=== PATIENT | female | born 1945 | race Caucasian/White ===

== ENCOUNTER → 2019-07-08 10:52 | Outpatient (BNVA) | payer MEDICARE, SELFPAY | PROVIDERS: Visit Provider Nurse Practitioner Family | DX: E78.2 Mixed hyperlipidemia (principal); I10 Essential (primary) hypertension; E03.8 Other specified hypothyroidism; Z76.89 Persons encountering health services in other specified circumstances; F17.200 Nicotine dependence, unspecified, uncomplicated | CPT/HCPCS: 80053; 80061; 84443; 85025 ==

== ENCOUNTER 2021-12-09 12:43 | Outpatient (CLI) | payer MEDICARE, SELFPAY ==
--- NOTE | 2021-12-09 12:57 | XR_ITS ---
WS: [id number] Thoracic spine, AP and lateral views, 12/09/2021 Clinical Data: THORACIC SPINE PAIN Comparison: None. Findings: There is a compression fracture of the T11 vertebral body with loss of greater than 50% of the anteri or and central vertebral body height. The disc heights are normal. The paravertebral regions are normal. There are vascular calcifications of the thoracic aorta and the splenic artery. XR/XR thoracic spine 2V [id number] Impression: T11 compression fracture of indeterminate age.
--- NOTE | 2021-12-09 12:57 | XR_ITS ---
WS: [id number] Lumbar spine, AP, lateral, both obliques, 12/09/2021 Clinical Data: LUMBAR PAIN Comparison: None. Findings: No lumbar compression fractures or subluxation is seen. There is a T11 vertebral body compression fra cture. Osteoporosis is present along with minimal anterior osteoarthritic spurring of all the vertebr al bodies.. No disc space narrowing is seen. The transverse processes and SI joints are normal. The oblique films show no spondylolysis. There is calcification in the wall of the abdominal aorta bu t no aneurysm and calcification in the splenic artery.. There are calcifications in the true pelvis w hich may represent uterine leiomyomas. XR/XR lumbar spine min 4V [id number] Impression: 1. T11 compression fracture but no lumbar compression fractures. 2. Osteoporosis with minimal anterior osteoarthritic spurring. 3. Negative for spondylolysis.
--- NOTE | 2021-12-09 12:57 | XR_ITS ---
WS: [id number] Cervical spine, 4 views, 12/09/2021 Clinical Data: CERVICAL PAIN-NECK Comparison: None. Findings: No compression fractures are seen. The disc heights are normal. There is no prevertebral so ft tissue swelling. The odontoid is unremarkable. There are bilateral soft tissue calcifications in t he neck probably represent carotid artery calcifications. The lung apices are normal. XR/XR cervical spine 3V* [id number] Impression: Negative cervical spine.
== END 2021-12-09 12:44 | disposition home or self-care (01) ==
PROVIDERS: PCP Nurse Practitioner Family; Visit Provider Nurse Practitioner Family
DX: M54.50 Low back pain, unspecified (principal); M54.2 Cervicalgia; M54.6 Pain in thoracic spine; S22.088A Other fracture of T11-T12 vertebra, initial encounter for closed fracture; X58.XXXA Exposure to other specified factors, initial encounter; M81.0 Age-related osteoporosis without current pathological fracture
CPT/HCPCS: 72040; 72070; 72110

== ENCOUNTER → 2022-02-08 08:24 | Outpatient (BNVA) | payer MEDICARE, SELFPAY | PROVIDERS: PCP Nurse Practitioner Family; Visit Provider Anesthesiology Pain Medicine | DX: M51.17 Intervertebral disc disorders with radiculopathy, lumbosacral region (principal); S22.000A Wedge compression fracture of unspecified thoracic vertebra, initial encounter for closed fracture; M79.604 Pain in right leg; M79.605 Pain in left leg; F17.210 Nicotine dependence, cigarettes, uncomplicated; X58.XXXA Exposure to other specified factors, initial encounter | CPT/HCPCS: 99205 ==

== ENCOUNTER 2023-06-26 12:05 | Outpatient (CLI) | payer MEDICARE, SELFPAY ==
--- NOTE | 2023-06-26 12:09 | XRR_ITS ---
PROCEDURE INFORMATION: Exam: XR Chest Exam date and time: 06/26/2023 12:20 PM Age: 77 years old Clinical indication: Shortness of breath TECHNIQUE: Imaging protocol: Radiologic exam of the chest. Views: 2 views. COMPARISON: CR XR cervical spine 3V* [id number] 12/09/2021 1:12 PM FINDINGS: Lungs: Minimal chronic interstitial prominence. Pleural spaces: Unremarkable. No pleural effusion. No pneumothorax. Heart/Mediastinum: See Vasculature finding. Vasculature: Mild cardiomegaly and uncoiling of the thoracic aorta. Bones/joints: Unremarkable. XR/XR chest 2V* [id number] IMPRESSION: No acute cardiopulmonary disease.
== END 2023-06-26 12:06 | disposition home or self-care (01) ==
LOC: RAD 12:06
PROVIDERS: PCP Nurse Practitioner Family; Visit Provider Nurse Practitioner Family
DX: R06.02 Shortness of breath (principal)
CPT/HCPCS: 71046

== ENCOUNTER → 2023-07-19 15:02 | Outpatient (BNVA) | payer MEDICARE, SELFPAY | PROVIDERS: PCP Nurse Practitioner Family; Visit Provider Nurse Practitioner | DX: I10 Essential (primary) hypertension (principal); E78.2 Mixed hyperlipidemia; E03.8 Other specified hypothyroidism; E55.9 Vitamin D deficiency, unspecified; I48.91 Unspecified atrial fibrillation; F17.200 Nicotine dependence, unspecified, uncomplicated | CPT/HCPCS: 80053; 80061; 82306; 82607; 84443; 85025 ==

== ENCOUNTER 2023-07-26 07:47 | Outpatient (CLI) | payer MEDICARE, SELFPAY ==
--- NOTE | 2023-07-26 08:00 | USCV_ITS ---
Mis Crow Age: 78 Gender: F : 1945 Exam Date: 07/26/2023 07:59 Ordering Phys: Antonio Delong Technologist: ARACELI Exam Location: [facility] [place] Indication: sob BP: 130 / 70 HR: 0 Rhythm: Sinus Technical Quality: Adequate MEASUREMENTS (Male / Female) Normal Values 2D ECHO LV Diastolic Diameter PLAX 4.6 cm 4.2 - 5.9 / 3.9 - 5.3 cm IVS Diastolic Thickness 1.2 cm 0.6 - 1.0 / 0.6 - 0.9 cm IVS Systolic Thickness 1.6 cm LVPW Diastolic Thickness 1.0 cm 0.6 - 1.0 / 0.6 - 0.9 cm LVPW Systolic Thickness 1.1 cm LVOT Diameter 2.0 cm LV Ejection Fraction 2D Teich 29.0 % LV Ejection Fraction MOD 2C 63.7 % LV Ejection Fraction 2C AL 0.0 % LA Diameter 4.5 cm Aorta at Sinotubular Diameter 2.5 cm IVC Diameter 2.1 cm M-MODE LA Ao Ratio MM 1.8 AV Cusp Separation MM 1.5 cm DOPPLER AV Peak Velocity 127.0 cm/s LVOT Peak Velocity 60.0 cm/s AV Area Cont Eq vti 0.6 cm squared AV Area Cont Eq pk 1.5 cm squared MV Area PHT 11.4 cm squared Mitral E to A Ratio 2.9 TR Peak Velocity 89.0 cm/s TR Peak Gradient 3.2 mmHg Right Atrial Pressure 3.0 mmHg Pulmonary Artery Systolic Pressu 6.2 mmHg PV Peak Velocity 67.0 cm/s FINDINGS Left Ventricle Normal left ventricular size and systolic function, EF 63%.no regional wall motion abnormalities. Right Ventricle The right ventricle is normal in size and function. Right Atrium Mildly increased right atrial size. Left Atrium Moderately increased left atrial size. Mitral Valve Mild mitral valve regurgitation. Aortic Valve Thickened aortic valve. Tricuspid Valve No gross abnormalities noted Pulmonic Valve Mild pulmonary valve regurgitation. Pericardium Normal pericardium without effusion. Aorta Normal ascending aorta dimension. IVC Normal inferior vena cava. CONCLUSIONS Normal left ventricular size and systolic function, EF 63%. No regional wall motion abnormalities. Mildly increased right atrial size. Moderately increased left atrial size. Thickened aortic valve. Mild pulmonary valve regurgitation. There is no pericardial effusion. There are no intracardiac masses. No similar previous studies are available for comparison Dr Mona John MD FACC (Electronically Signed) Final Date: 26 July 2023 13:03 S
== END 2023-07-26 07:48 | disposition home or self-care (01) ==
LOC: RAD 07:47
PROVIDERS: PCP Nurse Practitioner Family; Visit Provider Nurse Practitioner
DX: I48.91 Unspecified atrial fibrillation (principal); I35.8 Other nonrheumatic aortic valve disorders; I37.1 Nonrheumatic pulmonary valve insufficiency
CPT/HCPCS: 93306

== ENCOUNTER → 2023-09-12 11:42 | Outpatient (BNVA) | payer MEDICARE, SELFPAY | PROVIDERS: PCP Nurse Practitioner Family; Referring Provider Nurse Practitioner Family; Visit Provider Internal Medicine Cardiovascular Disease | DX: R07.9 Chest pain, unspecified (principal); I48.91 Unspecified atrial fibrillation; I48.92 Unspecified atrial flutter; Z79.01 Long term (current) use of anticoagulants; R53.1 Weakness; R06.02 Shortness of breath; E78.2 Mixed hyperlipidemia; I10 Essential (primary) hypertension; R05.8 Other specified cough; Z87.891 Personal history of nicotine dependence; R94.31 Abnormal electrocardiogram [ECG] [EKG] | CPT/HCPCS: 36415; 80053; 83880; 84443; 85025; 85610; 93005; 99204 ==

== ENCOUNTER → 2024-01-02 16:13 | Outpatient (BNVA) | payer MEDICARE, SELFPAY | PROVIDERS: PCP Nurse Practitioner; Visit Provider Nurse Practitioner | DX: I10 Essential (primary) hypertension (principal) | CPT/HCPCS: 80053; 81000 ==

== ENCOUNTER → 2024-02-06 10:50 | Outpatient (BNVA) | payer MEDICARE, SELFPAY | PROVIDERS: PCP Nurse Practitioner; Referring Provider Nurse Practitioner Family; Visit Provider Internal Medicine | DX: E03.8 Other specified hypothyroidism (principal) | CPT/HCPCS: 36415; 84439; 84443 ==

== ENCOUNTER 2024-04-13 22:13 | Inpatient (IN) | payer MEDICARE, SELFPAY ==
[2024-04-13 22:16] VITALS: BP 210/120; PULSE 129; RESP 16; TEMP 36.4; O2SAT 97
[2024-04-13 22:29] LABS: Glucose Point of Care 142 mg/dL (70-110)
--- NOTE | 2024-04-13 22:29 | CTR_ITS ---
PROCEDURE INFORMATION: Exam: CT Head Without Contrast Exam date and time: 04/13/2024 10:31 PM Age: 78 years old Clinical indication: Stroke-like symptoms; Altered mental status/memory loss and dizziness/giddiness and speech disturbance; RT upper extremity and RT lower extremity weakness; Additional info: Confusion and dizziness with dysphasia and RT sided weakness. Last known well time of 1600. TECHNIQUE: Imaging protocol: Computed tomography of the head without contrast. Radiation optimization: All CT scans at this facility use at least one of these dose optimization techniques: automated exposure control; mA and/or kV adjustment per patient size (includes targeted exams where dose is matched to clinical indication); or iterative reconstruction. Other technique: STROKE PROTOCOL was implemented. COMPARISON: CR XR cervical spine 3V* [id number] 12/09/2021 1:12 PM RADIATION DOSE METRICS: Total DLP (mGy-cm): 1097.98 FINDINGS: Brain: No CT evidence for acute ischemia, mass or hemorrhage. Generalized sulcal widening and ventricular enlargement is due to white matter volume loss. There is chronic moderate to advanced periventricular microangiopathy. Cerebral ventricles: See Brain finding. Paranasal sinuses: Visualized sinuses are unremarkable. No fluid levels. Mastoid air cells: Visualized mastoid air cells are well aerated. Bones: Unremarkable. No acute fracture. Soft tissues: Incidental left parietal external scalp osteoma. CT/CT head thrombolytic [id number] IMPRESSION: 1. No acute intracranial findings. 2. Atrophy and microangiopathy ASSESSMENT: ASPECTS ([place] Stroke Program Early CT Score) is 10.
--- NOTE | 2024-04-13 22:33 | P.HP_ITS ---
Providers/Chief Complaint 2 Primary Care Provider: Antonio Delong, [employer] ANALYST-C Chief Complaint: possible stroke History of Present Illness Mis Crow is a 78 year old female who has history of hypothyroidism, hypertension, A-fib, presented with chief complaint of nausea vomiting right- sided weakness and slurred speech. Patient lives with her sister, her symptoms started around 4 PM when she woke up feeling weak and lethargic when she stood up she started vomiting, she vomited 4 times, no seizure related activity, she noticed right-sided weakness and sister noted slurring of speech her symptoms were getting worse that is what prompted her visit in the ER. Code stroke was called. She was 6 hours out. Patient has stopped taking Eliquis a month ago because of the side effects. Patient thinks her Eliquis is making her sick. She has noticed weakness lethargy nausea and vomiting with Eliquis... At the time of my evaluation NIH score is 0 patient is awake and alert able to follow commands I do not appreciate any focal deficit, she is tachycardic A-fib RVR with hypotension Afebrile Able to follow commands CT head, CTA head and neck done in the ER Patient has not been taking her medication for quite some time, actively she is struggling with dyspnea on exertion, she is an ex-smoker stopped 2 years ago Review of Systems 2 Const: Reports: chills and change in weight; Denies: fever(s) Eyes: Denies: change in vision ENMT: Denies: throat pain Card: Denies: chest pain Resp: Denies: dyspnea GI: Reports: nausea and vomiting : Denies: flank pain Musc: Denies: neck pain Medications/Allergies Home Medications Medication Instructions Recorded Confirmed Last Taken Type ascorbic acid (vitamin C) 1,000 mg PO 07/08/19 04/08/24 Unknown History cholecalciferol (vitamin D3) 600 unit PO 07/08/19 04/08/24 Unknown History cyanocobalamin (vitamin B-12) 250 mcg PO 07/08/19 04/08/24 Unknown History vitamin E (dl, acetate) 400 unit PO 07/08/19 04/08/24 Unknown History magnesium hydroxide 400 mg (170 mg mg PO 02/08/22 04/08/24 Unknown History magnesium) chewable tablet umeclidinium 62.5 mcg-vilanterol 1 inh inhalation Q24H #60 ea 11/14/23 04/08/24 Unknown Rx 25 mcg/actuation powdr for inhalation (Anoro Ellipta) valsartan 160 mg tablet (Diovan) 320 mg (2 x 160 mg) PO DAILY #60 03/05/24 04/08/24 Unknown Rx tabs metoprolol tartrate 50 mg tablet 50 mg PO BID #60 tabs 04/08/24 04/08/24 Unknown Rx thyroid (pork) 60 mg tablet 60 mg PO DAILY #30 tabs 04/08/24 04/08/24 Unknown Rx ([place] Thyroid) Allergies Allergy/AdvReac Type Severity Reaction Status Date / Time Penicillins Allergy ADR-Agitate Verified 04/13/24 22:24 d aspirin AdvReac Severe ADR-Vomitin Verified 04/13/24 22:24 g lisinopril AdvReac Severe ADR-Cough Verified 04/13/24 22:24 PFSH Acute 2 PFSH: Medical History Influenza vaccination declined by patient Former cigarette smoker Atrial fibrillation Benign hypertension Mixed hyperlipidemia Adult onset hypothyroidism Surgical History History of cataract extraction Family History Sister Cancer Breast, bone, lymphoma Diabetes Hypertension Denies family history of Anesthesia complication Social History Smoking and tobacco/nicotine status: former use of tobacco/nicotine Alcohol intake: never Substance/Drug Use: never Adopted: No Caregiver/support person: Yes (family) Lives independently: Yes Household members: family Housing: House Marital status: / Number of children: 2 Number of grandchildren: 3 Highest education level completed: Some College, No Degree service: No Current occupational status: retired Current occupational exposures/hazards: No Do you think of yourself as: Straight/Heterosexual Current gender identity: Female Vitals/I&O/Wt Last Vital Signs Temp 97.5 F L 04/13/24 22:16 Pulse 129 H 04/13/24 22:16 Resp 16 04/13/24 22:16 BP 210/120 04/13/24 22:16 Pulse Ox 97 04/13/24 22:16 Weight last 48 hrs Weight 60.781 kg Physical Exam 2 Narrative: NIH 0 Awake and alert Able to follow commands No active focal deficit Hypertensive blood pressure 210/120 A-fib RVR Afebrile Able to follow commands Pleasant and cooperative Looks dehydrated S1, S2 variable No audible stridor or wheezing No respiratory distress No active chest pain Data 04/13/24 23:00 04/13/24 23:00 A&P Assessment and plan (1) Benign hypertension: (2) Atrial fibrillation: Qualifiers: Atrial fibrillation type: unspecified Qualified Code(s): I48.91 - Unspecified atrial fibrillation (3) Tachycardia: (4) Adult onset hypothyroidism: Plan TIA CT head CTA head and neck done Rule out posterior circulation stroke NIH 0 at the time of my evaluation Permissive hypertension Antihypertensive regimen to be used if blood pressure above 180/100mmhg Check B12, A1c level and TSH A-fib RVR She carries high risk for thromboembolic phenomenon at home patient takes metoprolol 50 mg twice daily, She has not taken her evening dose of metoprolol because of nausea vomiting Patient stopped taking Eliquis I have talked with the family that if she is experiencing side effects from Eliquis we can probably change to rivaroxaban Hypothyroid: Patient has not taken thyroid medication for quite some time Patient is attributing most of her symptoms to medications Patient is stating that she does not want to take any medications Extensive counseling needed before discharge Dyspnea on exertion: Cardiology wanted to do baseline workup echo was done in June as well no recent chest pain, EKG showing A-fib with RVR She may benefit from a cardiac stress test if stays still Monday: Kindly reevaluate over the weekend Back pain: T11 compression fracture is chronic since 2021 Will not request echo: It was done this year in June EF 63% no regional wall motion abnormality Will request PT/OT no need of ST patient does not have any slurring of speech, I do not appreciate any slurring of speech, I would allow patient to have cardiac diet for now Full code DVT prophylaxis therapeutic Lovenox Attestations 2 Medical Necessity Statement*: Anticipating discharge within 24 to 48 hours Diagnoses Benign hypertension I10 Atrial fibrillation, unspecified type I48.91 Atrial fibrillation type: unspecified Tachycardia R00.0 Adult onset hypothyroidism E03.8
--- NOTE | 2024-04-13 22:34 | CTR_ITS ---
PROCEDURE INFORMATION: Exam: CTA Head With Contrast, Arteriography Exam date and time: 04/13/2024 10:40 PM Age: 78 years old Clinical indication: Stroke-like symptoms; Altered mental status/memory loss and syncope/collapse; RT upper extremity and RT lower extremity weakness; Additional info: Confusion and dizziness with dysphasia and RT sided weakness. Last known well time of 1600. TECHNIQUE: Imaging protocol: Computed tomographic angiography of the head with contrast. Exam focused on the arteries. 3D rendering (Not supervised by radiologist): MIP and/or 3D reconstructed images were created by the technologist. Radiation optimization: All CT scans at this facility use at least one of these dose optimization techniques: automated exposure control; mA and/or kV adjustment per patient size (includes targeted exams where dose is matched to clinical indication); or iterative reconstruction. Contrast material: OMNI 350; Contrast volume: 100 ml; Contrast route: INTRAVENOUS (IV); COMPARISON: CT head thrombolytic [id number] 04/13/2024 10:31 PM RADIATION DOSE METRICS: Total DLP (mGy-cm): 383.22 FINDINGS: ANTERIOR CIRCULATION: Right internal carotid artery: Intracranial segment is patent with no significant stenosis. No aneurysm. Right middle cerebral artery: No occlusion or significant stenosis. No aneurysm. Right anterior cerebral artery: No occlusion or significant stenosis. No aneurysm. Left internal carotid artery: Calcified plaque in the distal left internal carotid artery does not produce significant stenosis. Left middle cerebral artery: No occlusion or significant stenosis. No aneurysm. Left anterior cerebral artery: No occlusion or significant stenosis. No aneurysm. POSTERIOR CIRCULATION: Right vertebral artery: No occlusion or significant stenosis. No aneurysm. Left vertebral artery: The distal vertebral arteries are patent with the left side strongly dominant. Basilar artery: No occlusion or significant stenosis. No aneurysm. Right posterior cerebral artery: No occlusion or significant stenosis. No aneurysm. Left posterior cerebral artery: No occlusion or significant stenosis. No aneurysm. Brain: No abnormal brain parenchymal enhancement. Major intracranial venous sinuses enhance normally. Cerebral ventricles: No ventriculomegaly. Bones/joints: Unremarkable. No acute fracture. Soft tissues: Unremarkable. PROCEDURE INFORMATION: Exam: CTA Neck With Contrast Exam date and time: 04/13/2024 10:40 PM Age: 78 years old Clinical indication: Stroke-like symptoms; Altered mental status/memory loss and syncope/collapse; RT upper extremity and RT lower extremity weakness; Additional info: Confusion and dizziness with dysphasia and RT sided weakness. Last known well time of 1600. TECHNIQUE: Imaging protocol: Computed tomographic angiography of the neck with contrast. Exam focused on the cervical segments of the vasculature. 3D rendering (Not supervised by radiologist): MIP and/or 3D reconstructed images were created by the technologist. Radiation optimization: All CT scans at this facility use at least one of these dose optimization techniques: automated exposure control; mA and/or kV adjustment per patient size (includes targeted exams where dose is matched to clinical indication); or iterative reconstruction. Contrast material: OMNI 350; Contrast volume: 100 ml; Contrast route: INTRAVENOUS (IV); COMPARISON: CT head thrombolytic [id number] 04/13/2024 10:31 PM RADIATION DOSE METRICS: Total DLP (mGy-cm): 383.22 FINDINGS: Right common carotid artery: No stenosis. No dissection or occlusion. Right internal carotid artery: Numerous calcified plaques in the right internal carotid without measurable stenosis. Calcified plaque in the right internal carotid producing mild less than 30% stenosis. Right external carotid artery: No occlusion or stenosis of the origin. Left common carotid artery: Numerous calcified plaques in the left common carotid without measurable stenosis. Left internal carotid artery: Additional calcified plaque in the proximal left internal carotid artery without measurable stenosis. Left external carotid artery: No occlusion or stenosis of the origin. Right vertebral artery: No stenosis. No dissection or occlusion. Left vertebral artery: Both vertebral arteries are patent with the left side dominant. Thyroid: Scattered coarse calcifications in the right lobe of the thyroid. Teeth: The patient is edentulous. Soft tissues: Normal. No significant soft tissue swelling. Bones/joints: No acute fracture. Lungs: Scars in the lung apices as well as centrilobular emphysema. CT/CT angio headneck* [id number] IMPRESSION: No significant intracranial vascular findings. IMPRESSION: No significant carotid or vertebral stenosis. REFERENCES: NASCET CRITERIA. The degree of stenosis in the cervical segment of the internal carotid artery is based on NASCET criteria. Normal is no stenosis. Mild is less than 50% stenosis. Moderate is 50-69% stenosis. Severe is 70% to 99% stenosis. Total occlusion is no detectable patent lumen.
--- NOTE | 2024-04-13 22:38 | ED_ITS ---
HPI - Altered Mental Status 2 General: Chief Complaint: Altered Mental Status Stated Complaint: possible stroke Time Seen by Provider: 04/13/24 22:37 History of Present Illness: 78-year-old female who is normally up wa lking unassisted, functional and talking. Around 4 PM today, family noticed that she did not know how to use the bathroom . She was having trouble talking. She was having trouble getting around. Yesterday was evidently a good day. She had not been ill. Related Data Previous Rx's Medication Instructions Recorded metoprolol tartrate 50 mg tablet 50 mg PO BID #60 tabs 04/08/24 Allergies Allergy/AdvReac Type Severity Reaction Status Date / Time Penicillins Allergy ADR-Agitate Verified 04/13/24 22:24 d aspirin AdvReac Severe ADR-Vomitin Verified 04/13/24 22:24 g lisinopril AdvReac Severe ADR-Cough Verified 04/13/24 22:24 PFSH ED 2 PFSH: Medical History Influenza vaccination declined by patient Former cigarette smoker Atrial fibrillation Benign hypertension Mixed hyperlipidemia Adult onset hypothyroidism Surgical History History of cataract extraction Family History Sister Cancer Breast, bone, lymphoma Diabetes Hypertension Denies family history of Anesthesia complication Social History Smoking and tobacco/nicotine status: former use of tobacco/nicotine Alcohol intake: never Substance/Drug Use: never Adopted: No Caregiver/support person: Yes (family) Lives independently: Yes Household members: family Housing: House Marital status: / Number of children: 2 Number of grandchildren: 3 Highest education level completed: Some College, No Degree service: No Current occupational status: retired Current occupational exposures/hazards: No Do you think of yourself as: Straight/Heterosexual Current gender identity: Female Physical Exam 2 Const: COMMON NORMALS: alert EXAM LIMITATIONS: altered mental status G ENERAL APPEARANCE: cooperative and ill appearing ORIENTATION/CONSCIOUSNESS: Y es awake, Yes oriented to person and Yes oriented to place; not oriented to time HENMT: COMMON NORMALS: normocephalic, atraumatic and Normal external nose present HEAD & SCALP: normocephalic and atraumatic FACE & SINUS: normal facial exam and face symmetric NOSE: Normal external nose present MOUTH: l ip normal Eye: COMMON NORMALS: Equal, round and reactive pupils present and EOMs intact bilaterally ALIGNMENT: Yes alignment normal PUPIL: Yes Equal, round and reactive pupils present Resp: COMMON NORMALS: normal respiratory effort, No retractions and clear to auscultation bilaterally AUSCULTATION: clear to auscultation bilaterally Cardio: RATE: tachycardic RHYTHM: abnormal rhythm irregularly irregular GI: COMMON NORMALS: Normal to inspection, nondistended, normoactive bowel sounds present, Soft to palpation and non-tender PALPATION: Yes Soft to palpation Neuro: SENSORIUM/ORIENTATION: Yes alert, Yes oriented to person, Yes oriented to place and No oriented to time CRANIAL NERVES: Yes CN normal except as noted COORDINATION/BALANCE: No mdthqc-kc-[id number] test normal and No bwsc-no-qbvz test normal SPEECH: speech normal SENSORY EXAM: Yes extremities (intact) MOTOR EXAM: 5/5 motor strength present throughout, Pronator motor function not present and Normal motor muscle tone present throughout COORDINATION: f bombb-ro-kwnb test abnormal and wdtr-ac-arjl test abnormal Course 2 Vital Signs: Vital signs: Vital Signs Temperature 97.8 F 04/14/24 01:00 Pulse Rate 100 04/14/24 01:00 Respiratory Rate 14 04/14/24 01:00 Blood Pressure 178/121 04/14/24 01:00 Pulse Oximetry 95 04/14/24 01:00 Oxygen Delivery Me thod Room Air 04/14/24 01:00 MDM - Altered Mental Status Medical Decision Making There is a bit of discoordination. There may be visual field defects, although visual field testing by confrontation is intact. Speech is normal. She does have some degree of expressive aphasia though, as she is unable to say her last name. She answers most questions, although she is confused and a poor historian about events today. This could be a posterior circulation stroke, although she does not show all the signs. She is not dizzy or vertiginous currently. She has evidently had vomiting and diarrhea today. Heart rate is elevated. She has a history of atrial fibrillation. She is in A-fib with RVR, and very hypertensive. She is started on diltiazem drip for both hypertension and tachycardia. Head CT is negative. CTA of the head and neck are negative for acute stenosis. She is out of the window to treat with thrombolytics. She was prescribed Eliquis, but family states she has not been taking it. Her creatinine is 1.4. Her sodium is 132. Hospitalist is seeing the patient. She will go to the [facility]. Chest x-ray is nonacute. Lactic acid is 2. Urinalysis is pending. Lab Data 04/13/24 23:00 04/13/24 23:[address] 04/13/24 22:29 IMPRESSION: 1. No acute intracranial findings. 2. Atrophy and microangiopathy ASSESSMENT: ASPECTS (Jenifer Stroke Program Early CT Score) is 10. Head/Neck CTA 04/13/24 22:34 IMPRESSION: No significant intracranial vascular findings. IMPRESSION: No significant carotid or vertebral stenosis. REFERENCES: NASCET CRITERIA. The degree of stenosis in the cervical segment of the internal carotid artery is based on NASCET criteria. Normal is no stenosis. Mild is less than 50% stenosis. Moderate is 50-69% stenosis. Severe is 70% to 99% stenosis. Total occlusion is no detectable patent lumen. Chest X-Ray 04/13/24 22:45 IMPRESSION: No acute findings. Laboratory Results WBC 11.34 10^3/uL (3.29-11.43) 04/13/24 23:00 RBC 4.44 10^6/uL (3.85-5.65) 04/13/24 23:00 Hgb 13.60 g/dL (11.27-16.99) 04/13/24 23:00 Hct 42.2 % (36-47) 04/13/24 23:00 MCV 95.0 fl (85-98) 04/13/24 23:00 MCH 30.6 pg (27-33) 04/13/24 23:00 MCHC 32.2 g/dL (30-55) 04/13/24 23:00 RDW 15.0 % (12.1-15.1) 04/13/24 23:00 Plt Count 299 10^3/cmm (157-399) 04/13/24 23:00 MPV 9.0 fL (7.4-10.4) 04/13/24 23:00 Neut % (Auto) 86.6 % 04/13/24 23:00 Lymph % (Auto) 9.7 % 04/13/24 23:00 Yell % (Auto) 2.8 % 04/13/24 23:00 Eos % (Auto) 0.1 % 04/13/24 23:00 Baso % (Auto) 0.5 % 04/13/24 23:00 Neut # (Auto) 9.82 10^3/uL (1.8-7.7) H 04/13/24 23:00 Lymph # (Auto) 1.1 10^3/uL (0.8-4.8) 04/13/24 23:00 Yell # (Auto) 0.3 10^3/uL (0.2-0.9) 04/13/24 23:00 Eos # (Auto) 0.0 10^3/uL (0.0-0.8) 04/13/24 23:00 Baso # (Auto) 0.1 10^3/uL (0.0-0.1) 04/13/24 23:00 Nucleated RBC % (auto) 0 % 04/13/24 23:00 Nucleated RBCs # 0.0 /100WBC 04/13/24 23:00 PT 13.90 SECONDS (12.1-14.9) 04/13/24 23:00 INR 1.04 (0.8-1.2) 04/13/24 23:00 APTT 30.5 SECONDS (23.9-36.7) 04/13/24 23:00 Sodium 132 mmol/L (136-145) L 04/13/24 23:00 Potassium 4.1 mmol/L (3.5-5.1) 04/13/24 23:00 Chloride 95 mmol/L (98-107) L 04/13/24 23:00 Carbon Dioxide 24 mmol/L (22-29) 04/13/24 23:00 Anion Gap 17.1 (5-19) 04/13/24 23:00 BUN 21 mg/dL (8-23) 04/13/24 23:00 Creatinine 1.4 mg/dL (0.5-0.9) H 04/13/24 23:00 GFR Calculation Not Reportable 04/13/24 23:00 Glucose 170 mg/dL (65-115) H 04/13/24 23:00 POC Glucose 142 mg/dL (70-110) H 04/13/24 22:25 Estimat Average Glucose 114 04/13/24 23:00 Hemoglobin A1c 5.6 % (4.0-6.0) 04/13/24 23:00 Calculated Osmolality 281 mOsm/kg (285-295) L 04/13/24 23:00 Lactic Acid 2.1 mmol/L (0.5-2.2) 04/13/24 23:00 Calcium 9.6 mg/dL (8.5-10.5) 04/13/24 23:00 Total Bilirubin 0.5 mg/dL (0.15-1.2) 04/13/24 23:00 AST 18 U/L (0-32) 04/13/24 23:00 ALT 11 U/L (0-33) 04/13/24 23:00 Alkaline Phosphatase 64 U/L (35-105) 04/13/24 23:00 Troponin T Baseline 26 ng/L (0-10) H 04/13/24 23:00 C-Reactive Protein 3.0 mg/L (0.0-4.9) 04/13/24 23:00 NT-Pro-B Natriuret Pep 4004 pg/mL (0-450) H 04/13/24 23:00 Total Protein 8.0 g/dL (6.6-8.7) 04/13/24 23:00 Albumin 4.6 g/dL (3.5-5.2) 04/13/24 23:00 Globulin 3.4 g/dL (1.3-4.6) 04/13/24 23:00 Ethyl Alcohol < 10 mg/dL (0-10) 04/13/24 23:00 All radiology interpretation(s) finalized by discharge Discharge Plan Discharge Patient Disposition: Admitted As Inpatient Admit Provider: Jimmy Chambers Clinical Impression: Acute alteration in mental status, Atrial fibrillation with rapid ventricular response Condition: Serious Coding Level of Care Code ED Extension Service Agent for Juwan Blank
[2024-04-13] MEDS: iohexol 350 mg/mL 500 mL Btl (per mL) IV (22:41)
--- NOTE | 2024-04-13 22:45 | XRR_ITS ---
PROCEDURE INFORMATION: Exam: XR Chest Exam date and time: 04/13/2024 10:55 PM Age: 78 years old Clinical indication: Patient HX: AMS; Acute CVA; Cough TECHNIQUE: Imaging protocol: Radiologic exam of the chest. Views: 1 view. COMPARISON: CR XR chest 2V* [id number] 06/26/2023 12:20 PM FINDINGS: Lungs: Unremarkable. No consolidation. Pleural spaces: Unremarkable. No pleural effusion. No pneumothorax. Heart/Mediastinum: Unremarkable. No cardiomegaly. Bones/joints: Unremarkable. XR/XR chest 1V portable [id number] IMPRESSION: No acute findings.
--- NOTE | 2024-04-13 22:53 | ECG_ITS ---
[facility] [place] Test Date: 2024-04-13 Pat Name: Mis Crow Department: Room: Gender: Female Hand Hide Stretcher: : 1945 Requested By: Mazin Culp Order Number: [id number] Denilson MD: Mona John M.D. Measurements Intervals [place] Rate: 139 P: 0 IL: 0 QRS: 100 QRSD: 95 T: -39 QT: 297 QTc: 453 Interpretive Statements ATRIAL FIBRILLATION WITH RAPID VENTRICULAR RESPONSE BORDERLINE RIGHT AXIS DEVIATION [QRS AXIS > 90] NONSPECIFIC ST & T-WAVE ABNORMALITY Compared to ECG 09/12/2023 11:49:38 T-wave abnormality now present Electronically Signed On 04-14-2024 20:22:49 SKEIN BANDER by Mona John M.D. [email or web address]
[2024-04-13] MEDS: sodium chloride 0.9% 1,000 ML 999 ML IV (23:08)
[2024-04-13 23:10] LABS: Basophils # 0.1 10^3/uL (0.0-0.1); Basophils % 0.5 %; Eosinophils % 0.1 %; Hematocrit 42.2 % (36-47); Lymphocytes # 1.1 10^3/uL (0.8-4.8); Lymphocytes % 9.7 %; Mean Corpuscular HGB Conc 32.2 g/dL (30-55); Mean Corpuscular Hemoglobin 30.6 pg (27-33); Monocytes # 0.3 10^3/uL (0.2-0.9); Monocytes % 2.8 %; Neutrophils # 9.82 10^3/uL (1.8-7.7); Neutrophils % 86.6 %; Nucleated Red Blood Cells % 0 %; Platelet Count 299 10^3/cmm (157-399); Red Blood Count 4.44 10^6/uL (3.85-5.65); White Blood Count 11.34 10^3/uL (3.29-11.43)
[2024-04-13 23:26] LABS: INR 1.04 (0.8-1.2)
[2024-04-13 23:27] LABS: Partial Thromboplastin Time 30.5 SECONDS (23.9-36.7)
[2024-04-13 23:30] LABS: Lactic Sepsis W/Reflex 2.1 mmol/L (0.5-2.2)
[2024-04-13 23:32] LABS: Troponin(5th) Baseline 26 ng/L (0-10)
[2024-04-13 23:34] LABS: Bilirubin Urine Negative (Negative); Blood Urine Negative (Negative); Glucose Urine UA Negative (Normal); Ketones Urine Trace (Negative); Leukocyte Esterase Urine Negative (Negative); Nitrate Urine Negative (Negative); Protein Urine 2+ (Negative); Specific Gravity, Urine 1.027 (1.005-1.030); Urine Appearance Clear (CLEAR); Urine Color Yellow (Yellow); Urobilinogen Urine 0.2 mg/dL (Negative); pH Urine 7.5 (5-7)
[2024-04-13 23:37] LABS: Add Urine Microscopic? YES; Bacteria Urine None Seen /hpf; Hyaline Casts Urine 0-4 /lpf; RBC Urine 0-2 /hpf (0-2); Squamous Epithelial Cell Urine 0-5 /hpf (0-5); WBC Urine 0-5 /hpf (0-5)
[2024-04-13] MEDS: dilTIAZem 100 MG in sodium chloride 0.9% (add-van) 100 ML IV (23:38)
[2024-04-13 23:39] VITALS: BP 205/148; PULSE 130; RESP 26; O2SAT 95
[2024-04-13 23:40] LABS: Alanine Aminotransferase 11 U/L (0-33); Albumin Level 4.6 g/dL (3.5-5.2); Alkaline Phosphatase 64 U/L (35-105); Anion Gap 17.1 (5-19); Aspartate Amino Transferase 18 U/L (0-32); Blood Urea Nitrogen 21 mg/dL (8-23); Calcium 9.6 mg/dL (8.5-10.5); Carbon Dioxide 24 mmol/L (22-29); Chloride 95 mmol/L (98-107); Creatinine Clr Calc Pharmacy 30.3027; Globulin 3.4 g/dL (1.3-4.6); Glucose 170 mg/dL (65-115); NT Pro B Type Natriuretic Pept 4004 pg/mL (0-450); Osmolality Calculated 281 mOsm/kg (285-295); Potassium 4.1 mmol/L (3.5-5.1); Sodium 132 mmol/L (136-145); Total Bilirubin 0.5 mg/dL (0.15-1.2)
[2024-04-13 23:42] LABS: Amphetamines Screen Urine Negative (Negative); Barbiturates Screen Urine Negative (Negative); Benzodiazepines Screen Urine Negative (Negative); Cocaine Screen Urine Negative (Negative); Opiate Screen Urine Negative (Negative); PCP Screen Urine Negative (Negative); THC Screen Urine Negative (Negative)
[2024-04-13 23:43] LABS: ABG PCO2 35.1 mmHg (35-45); ABG PH Result 7.38 (7.35-7.45); Base Excess ABG -3.7 mmol/L (-2.0-2.0); Blood Gas Sample Site Brachial, right; Blood Gas Sample Type Arterial; HCO3 ABG 20.8 mmol/L (22-26); Oxygen Device ROOM AIR; PO2 ABG 79.7 mmHg (80.0-100.0)
[2024-04-13 23:44] LABS: Alcohol Level < 10 mg/dL (0-10)
[2024-04-14] VITALS (15 sets, daily range): BP systolic 157–182; BP diastolic 84–134; PULSE 77–101; RESP 10–20; TEMP 36.6–37; O2SAT 90–98
[2024-04-14 00:53] LABS: Reflex Lactate Order REFLEX LACTIC ORDERD
[2024-04-14] MEDS: enoxaparin 60 mg/0.6 mL Syringe SUBCUT (01:26)
--- NOTE | 2024-04-14 01:37 | ECG_ITS ---
[facility] Test Date: 2024-04-14 Pat Name: Mis Crow Department: Room: 106 Gender: Female Manager Meeting: : 1945 Requested By: Mazin Culp Order Number: [id number] Denilson MD: Mona John M.D. Measurements Intervals [place] Rate: 109 P: 0 NC: 0 QRS: 89 QRSD: 96 T: -61 QT: 369 QTc: 498 Interpretive Statements ATRIAL FIBRILLATION WITH RAPID VENTRICULAR RESPONSE NONSPECIFIC ST & T-WAVE ABNORMALITY Compared to ECG 04/13/2024 22:53:31 No significant changes Electronically Signed On 04-14-2024 20:35:18 CARDIOVASCULAR INVASIVE SPECIALIST by Mona John M.D. [id number]
[2024-04-14 01:39] LABS: Estmated Average Glucose 114; Hemoglobin A1C 5.6 % (4.0-6.0)
[2024-04-14 01:41] LABS: Troponin 5 2HR 23.75 ng/L (0-10); Troponin 5 2HR Delta -2.25 ABS# (0-10)
[2024-04-14] MEDS: ondansetron 2 mg/ML SDV 2 mL 4 MG IVP ×2 (02:41→08:09)
[2024-04-14 02:47] LABS: Thyroid Stimulating Hormone 21.63 uIU/mL (0.27-4.20); Vitamin B12 1274 pg/mL (232-1245)
[2024-04-14 05:45] LABS: Anion Gap 14.1 (5-19); Blood Urea Nitrogen 18 mg/dL (8-23); Calcium 9.6 mg/dL (8.5-10.5); Carbon Dioxide 26 mmol/L (22-29); Chloride 102 mmol/L (98-107); Creatinine Clr Calc Pharmacy 32.8316; Glucose 134 mg/dL (65-115); Magnesium 2.1 mg/dL (1.7-2.3); Osmolality Calculated 290 mOsm/kg (285-295); Phosphorus 3.1 mg/dL (2.5-4.5); Potassium 4.1 mmol/L (3.5-5.1); Sodium 138 mmol/L (136-145)
[2024-04-14 05:46] LABS: Lactic Acid level (Lactate) 1.4 mmol/L (0.5-2.2)
--- NOTE | 2024-04-14 06:25 | ECG_ITS ---
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 Measurements Intervals [place] Rate: 81 P: 0 ID: 0 QRS: 82 QRSD: 102 T: 0 QT: 398 QTc: 462 Interpretive Statements ATRIAL FIBRILLATION NONSPECIFIC ST & T-WAVE ABNORMALITY ABNORMAL RHYTHM ECG Compared to ECG 04/14/2024 01:37:30 No significant changes Electronically Signed On 04-14-2024 20:35:22 SENIOR BUSINESS MANAGER by Mona John M.D. [id number]
[2024-04-14 06:27] LABS: Troponin 5 6HR 26.21 ng/L (0-10); Troponin 5 6HR Delta 0.21 ng/L (0-12)
[2024-04-14] MEDS: atorvastatin 40 mg Tablet 80 MG PO (08:08)
[2024-04-14] MEDS: metoprolol tartrate 50 mg Tablet PO (08:09)
[2024-04-14] MEDS: losartan 50 mg Tablet PO (08:09)
[2024-04-14] MEDS: thyroid 60 mg Tablet PO (08:09)
--- NOTE | 2024-04-14 08:18 | PC.NURSE ---
Patient is very confused this morning. She is alert oriented to person and needs direction for nearly every task. Patient will ask nurse if she (the patient( needs to throw up and will say do I throw up now? Zofran given for nausea. Daughter at bedside to hand patient wash basin when she needs it. Blood pressure still elevated. Morning medications given to bring it down.
[2024-04-14 08:51] LABS: Free T4 Free Thyroxine 0.65 ng/dL (0.82-1.77); T3 Free 1.7 PG/ML (2.0-4.4)
--- NOTE | 2024-04-14 09:12 | CTR_ITS ---
PROCEDURE INFORMATION: Exam: CT Head Without Contrast Exam date and time: 04/14/2024 9:21 AM Age: 78 years old Clinical indication: Altered mental status/memory loss; Additional info: Altered mental status with CVA TECHNIQUE: Imaging protocol: Computed tomography of the head without contrast. Radiation optimization: All CT scans at this facility use at least one of these dose optimization techniques: automated exposure control; mA and/or kV adjustment per patient size (includes targeted exams where dose is matched to clinical indication); or iterative reconstruction. COMPARISON: CT angio headneck* [id number] 04/13/2024 10:40 PM RADIATION DOSE METRICS: Total DLP (mGy-cm): 904.28 FINDINGS: Brain: Area hypoattenuation with loss of hooper-white differentiation in the left posterior BINGO CHECKER region including portions of the medial/posterior temporal and medial occipital lobes, concerning for acute infarct. Subcortical and periventricular white matter hypoattenuation likely consistent with severe chronic microvascular ischemic disease. No acute intracranial hemorrhage identified. No significant mass effect. Cerebral ventricles: The ventricles are within normal limits. Paranasal sinuses: The visualized sinuses are unremarkable. Mastoid air cells: The visualized mastoid air cells are well aerated. Bones: Unremarkable. No acute fracture. Soft tissues: Unremarkable. Vasculature: Prominent calcification in the region of the left posterior cerebral artery likely causing stenosis/occlusion. CT/CT head wo con* [id number] IMPRESSION: 1. Area hypoattenuation with loss of hooper-white differentiation in the left posterior BINGO CHECKER region including portions of the medial/posterior temporal and medial occipital lobes, concerning for acute infarct. 2. Prominent calcification in the region of the left posterior cerebral artery likely causing stenosis/occlusion. 3. Severe chronic microvascular ischemic disease.
--- NOTE | 2024-04-14 09:13 | MRR_ITS ---
PROCEDURE INFORMATION: Exam: MR Head Without Contrast Exam date and time: 04/14/2024 9:43 AM Age: 78 years old Clinical indication: Altered mental status/memory loss and dizziness and walking, difficulty; Confusion or disorientation; Additional info: CVA TECHNIQUE: Imaging protocol: Magnetic resonance imaging of the head without contrast. COMPARISON: CT head wo con* [id number] 04/14/2024 9:21 AM FINDINGS: Brain: Left GREASE PACKER territory restricted diffusion consistent with acute infarct. Periventricular and subcortical white matter hyperintensities on axial T2 FLAIR imaging consistent with chronic microvascular ischemic disease. No signal loss on gradient imaging concerning for acute hemorrhage. Cerebral ventricles: Normal. No ventriculomegaly. Bones: Unremarkable. Paranasal sinuses: Normal as visualized. No acute sinusitis. Mastoid air cells: Normal as visualized. No mastoid effusion. Orbital cavities: Unremarkable. Soft tissues: Unremarkable. MR/MR head wo con* [id number] IMPRESSION: Left GREASE PACKER territory restricted diffusion consistent with acute infarct.
[2024-04-14] MEDS: sodium chloride 0.9% 1,000 ML 100 ML IV ×2 (11:53→21:03)
[2024-04-14 12:10] LABS: Partial Thromboplastin Time 34.3 SECONDS (23.9-36.7)
[2024-04-14 12:13] LABS: Chol HDL Ratio 7.18 mg/dL (0.0-4.40); Cholesterol 280 mg/dL (0-200); HDL Cholesterol 39 mg/dL (60-100); LDL Cholesterol Calculated 212 mg/dL (50-129); LDL HDL Ratio 5.44 RATIO (0.00-3.22); Triglycerides 143 mg/dL (0-150)
--- NOTE | 2024-04-14 12:32 | PC.SLP ---
SCALE OPERATOR attempted to see patient. Patient was resting and family said she has not had much rest yet. Must remain flat per note on door entrance. Patient not safe to attempt bedside swallow on at this point. Will check back first thing in the AM.
[2024-04-14] MEDS: pantoprazole 40 mg SDV IVP (13:16)
[2024-04-14] MEDS: aspirin 300 mg Supp PR (13:16)
--- NOTE | 2024-04-14 14:03 | PM.PN ---
Subjective Subjective: - Patient was examined this morning, daughter is at bedside she is alert to person, not to place, not to time she can follow commands no facial droop no slurring of words no focal weakness that I can discharge she is able to data governance analyst my fingers bilaterally to raise bilateral arms to raise bilateral legs, she tested neglect the right side on examination, she is quite diffuse encephalopathic but I do feel that she has a right visual field cut, she does not recognize her daughter at bedside, does not remember her address, she knows her age, but does not know her address, [id number] is abnormal on the right, she tends to neglect the right ? NIH stroke scale is anywhere between 2-3 -Currently she is on a Cardizem drip for atrial fibrillation, rates are well-controlled blood pressure 170/110, she did receive therapeutic Lovenox overnight -Given acute concern, for CVA, intracranial bleed stat head CT was ordered -Discussed with family will at bedside will monitor her closely her last known well normal was 4 PM yesterday, as per documentation she was confused to the emergency room, family says that she is much more confused this morning, nursing staff tells me that she was confused throughout the night -Spoke to radiologist -Head CT CT/CT head wo con* [id number] IMPRESSION: 1. Area hypoattenuation with loss of hooper-white differentiation in the left posterior PROFESSIONAL SYSTEM ADMINISTRATOR region including portions of the medial/posterior temporal and medial occipital lobes, concerning for acute infarct. 2. Prominent calcification in the region of the left posterior cerebral artery likely causing stenosis/occlusion. 3. Severe chronic microvascular ischemic disease. -Stat head MRI - MR/MR head wo con* [id number] IMPRESSION: Left PROFESSIONAL SYSTEM ADMINISTRATOR territory restricted diffusion consistent with acute infarct. -Patient's Cardizem drip was stopped due to concerns for lowering blood pressure, heart rates are well-controlled nursing staff was advised to keep her flat, for least 24 hours, neurochecks, and a stroke scale keep her n.p.o. till speech therapy sees her allow for permissive hypertension, rectal aspirin hold therapeutic Lovenox -Spoke to [facility], teleneurology reviewed images reviewed case, out of the window for tPA, area of stroke is not amenable to endovascular procedure, they recommended medical management anticoagulation within 5 to 7 days -Patient was reexamined, she is resting comfortably, family members are at bedside, discussed patient's acute CVA, posterior circulation stroke discussed plans on medical management, will monitor closely monitor for hemorrhagic conversion, speech therapy eval PT OT, for now permissive hypertension, keep her flat IV fluids I would not discontinue the Cardizem due to her heart rates being under control and her blood pressure slowly coming down and I would rather her have permissive hypertension, can use pushes of Cardizem to control heart rate if needed or even amiodarone Vitals/I&O/Wt Last Vital Signs Temp 98.4 F 04/14/24 08:00 Pulse 94 04/14/24 11:51 Resp 20 H 04/14/24 11:51 BP 157/90 04/14/24 11:51 Pulse Ox 90 04/14/24 11:51 O2 Del Method Room Air 04/14/24 11:51 04/13/24 04/14/24 04/14/24 22:59 06:59 14:59 Intake Total 1051.875 / 1051.875 8.833 / 8.833 Output Total 300 / 300 300 / 300 Balance 751.875 / 751.875 -291.167 / -291.167 Weight last 48 hrs Weight 61.689 kg Weight 61.689 kg Weight 60.781 kg Physical Exam Const: COMMON NORMALS: no acute distress EXAM LIMITATIONS: altered mental status ORIENTATION/CONSCIOUSNESS: Yes awake, Yes oriented to person and Yes confused; not oriented to place and not oriented to time Eye: OTHER: Pupils equal round react to light, tends to have right-sided neglect, difficult to do visual field testing but I think she has a right-sided hemianopsia right-sided visual field cut Resp: COMMON NORMALS: normal respiratory effort, No retractions, No use of accessory muscles and clear to auscultation bilaterally AUSCULTATION: clear to auscultation bilaterally Cardio: COMMON NORMALS: regular rate, regular rhythm, S1 normal heart sound present and S2 normal heart sound present RATE: regular rate RHYTHM: regular rhythm HEART SOUNDS: S1 normal heart sound present and S2 normal heart sound present GI: COMMON NORMALS: Normal to inspection, nondistended, normoactive bowel sounds present and non-tender Extremity: COMMON NORMALS: no pedal edema Neuro: COMMON NORMALS: CN's II-XII intact bilaterally, moves all extremities and no focal motor deficits SENSORIUM/ORIENTATION: Yes oriented to person, No oriented to place and No oriented to time OTHER: Creatinine was abnormal on the right, and a stroke scale 2-3 Data 04/13/24 23:00 04/14/24 04:02 Micro: Microbiology 04/13/24 23:03 Blood Culture - Preliminary Blood SPECIMEN COLLECTED 04/13/24 23:00 Blood Culture - Preliminary Blood SPECIMEN COLLECTED A&P Assessment and plan (1) Left acute arterial ischemic stroke, PROFESSIONAL SYSTEM ADMINISTRATOR (posterior cerebral artery): (2) Atrial fibrillation: Qualifiers: Atrial fibrillation type: unspecified Qualified Code(s): I48.91 - Unspecified atrial fibrillation (3) Benign hypertension: (4) Atrial fibrillation with rapid ventricular response: (5) Mixed hyperlipidemia: (6) Adult onset hypothyroidism: Plan Left PROFESSIONAL SYSTEM ADMINISTRATOR territory stroke -Head CT CT/CT head wo con* [id number] IMPRESSION: 1. Area hypoattenuation with loss of hooper-white differentiation in the left posterior PROFESSIONAL SYSTEM ADMINISTRATOR region including portions of the medial/posterior temporal and medial occipital lobes, concerning for acute infarct. 2. Prominent calcification in the region of the left posterior cerebral artery likely causing stenosis/occlusion. 3. Severe chronic microvascular ischemic disease. -Stat head MRI - MR/MR head wo con* [id number] IMPRESSION: Left PROFESSIONAL SYSTEM ADMINISTRATOR territory restricted diffusion consistent with acute infarct. -With right-sided hemineglect, right-sided hemianopsia, encephalopathy -NIH stroke scale 2-3, out of tPA window, not a candidate for endovascular procedure, [facility], stroke service was consulted Plan -Monitor in CSU ? Neurochecks ? NIH stroke scale ? Aspiration precautions ? Monitor mentation ? Allow for permissive hypertension treat systolic blood pressure greater than 220 or diastolic greater than 120 ? For A-fib with RVR, I have stopped Cardizem drip, will consider IV Cardizem pushes to control heart rate, if heart rate is greater than 120 -Cardiac echo -Aspirin 325 -Continue statin -Hold blood pressure medications -Anticoagulant therapy in 5 to 7 days based on clinical progress -Consider repeat head CT in 24 hours -Keep patient flat -IV fluids -Full code -Lovenox for DVT prophylaxis A-fib with RVR as above Hypothyroidism as above Acute encephalopathy as above Spoke to patient, speak to virtual radiology twice, radiologist, spoke to teleneurology at [facility], spoke to neurologist, spoke to nursing staff, spoke to patient, spoke to patient's family Attestations Medical Necessity Statement*: Patient requires hospitalization for acute left PROFESSIONAL SYSTEM ADMINISTRATOR territory stroke Coding Level of Care Code Critical Care >/= 30 minutes Critical care time (in minutes): 45 The high probability of a clinically significant, sudden or life threatening deterioration, as referenced in this documentation, required my full and direct attention, intervention and personal management. The critical care time shown is in addition to time spent performing any reported separately billable procedures and includes the following: [x] Data and vital sign review and interpretation [x] Patient assessment, examination and intervention [x] Medication orders and management [x] Patient/Family updates as able [x] Care Coordination and Documentation. Diagnoses Left acute arterial ischemic stroke, PROFESSIONAL SYSTEM ADMINISTRATOR (posterior cerebral artery) I63.532 Atrial fibrillation, unspecified type I48.91 Atrial fibrillation type: unspecified Benign hypertension I10 Atrial fibrillation with rapid ventricular response I48.91 Mixed hyperlipidemia E78.2 Adult onset hypothyroidism E03.8
--- NOTE | 2024-04-14 14:13 | USCV_ITS ---
Mis Crow Age: 78 Gender: F : 1945 Exam Date: 04/14/2024 16:05 Ordering Phys: Mckinley Jane MD Technologist: Leo Mcleod Exam Location: [place] Indication: cva BP: 157 / 90 HR: 84 Rhythm: Sinus Technical Quality: Adequate MEASUREMENTS (Male / Female) Normal Values 2D ECHO LV Diastolic Diameter PLAX 4.2 cm 4.2 - 5.9 / 3.9 - 5.3 cm IVS Diastolic Thickness 1.3 cm 0.6 - 1.0 / 0.6 - 0.9 cm IVS Systolic Thickness 1.9 cm LVPW Diastolic Thickness 1.6 cm 0.6 - 1.0 / 0.6 - 0.9 cm LVPW Systolic Thickness 1.9 cm LVOT Diameter 2.0 cm LV Ejection Fraction 2D Teich 63.2 % LV Ejection Fraction MOD 4C 64.1 % LV Ejection Fraction MOD 2C 52.4 % LV Ejection Fraction 2C AL 55.0 % LA Diameter 4.6 cm RA Systolic Volume 4C AL 60.3 ml RA Systolic Volume 4C MOD 57.5 ml LA Sys Volume AL 79.1 cm cubed LA Sys Volume Index AL 46.6 cm cubed/m squared Aorta at Sinotubular Diameter 2.7 cm IVC Diameter 1.7 cm M-MODE LA Ao Ratio MM 1.1 AV Cusp Separation MM 1.1 cm DOPPLER AV Peak Velocity 161.0 cm/s LVOT Peak Velocity 67.0 cm/s AV Area Cont Eq vti 1.2 cm squared AV Area Cont Eq pk 1.3 cm squared MV Peak Velocity 155.0 cm/s MV Area PHT 3.9 cm squared Mitral E to A Ratio 3.6 TV Peak Velocity 252.0 cm/s TR Peak Velocity 254.0 cm/s TR Peak Gradient 25.8 mmHg TR Mean Velocity 209.0 cm/s TR Mean Gradient 18.2 mmHg TR Velocity Time Integral 60.7 cm PV Peak Velocity 81.0 cm/s RV Ejection Time 0.3 s FINDINGS Left Ventricle Normal left ventricular size and , EF 60%. Moderate hypokinesia of the basal inferior wall segment Right Ventricle The right ventricle is normal in size and function. Right Atrium Mildly increased right atrial size. Left Atrium Moderately increased left atrial size. Mitral Valve Mild mitral valve regurgitation. Aortic Valve Trace aortic valve regurgitation. Tricuspid Valve Trace tricuspid valve regurgitation. Pulmonic Valve Mild pulmonary valve regurgitation. Pericardium No pericardial effusion. Aorta Normal size aortic root and proximal ascending aorta. IVC Normal inferior vena cava. CONCLUSIONS Normal left ventricular size and , EF 60%. Wall motion abnormality as mentioned above. Moderately increased left atrial size. Mildly increased right atrial size. Mild mitral valve regurgitation. Trace aortic valve regurgitation. Trace tricuspid valve regurgitation. Mild pulmonary valve regurgitation. There is no pericardial effusion. There are no intracardiac masses. Compared to the study from 07/26/2023, there may not be a significant change Dr Mona John MD [facility] (Electronically Signed) Final Date: 14 April 2024 19:54 S
[2024-04-14 19:07] LABS: Bilirubin Urine Negative (Negative); Blood Urine 3+ (Negative); Glucose Urine UA Negative (Normal); Ketones Urine Negative (Negative); Leukocyte Esterase Urine 2+ (Negative); Nitrate Urine Negative (Negative); Protein Urine 2+ (Negative); Specific Gravity, Urine 1.016 (1.005-1.030); Urine Appearance Clear (CLEAR); Urobilinogen Urine 0.2 mg/dL (Negative)
[2024-04-14 19:32] LABS: Add Urine Culture? Yes; Add Urine Microscopic? YES; Bacteria Urine 1+ /hpf; RBC Urine 50-80 /hpf (0-2); UA Manual Slide Review YES; UA Slide Review UA Slide Review Perf; Urine Color Red (Yellow); WBC Urine 25-40 /hpf (0-5)
[2024-04-14] MEDS: labetalol 5 mg/mL SDV 20mL 10 MG IVP (23:26)
[2024-04-15] VITALS (10 sets, daily range): BP systolic 140–190; BP diastolic 86–140; PULSE 88–144; RESP 12–22; TEMP 36.6–37.4; O2SAT 90–97
[2024-04-15 04:08] LABS: Alanine Aminotransferase 10 U/L (0-33); Albumin Level 3.8 g/dL (3.5-5.2); Alkaline Phosphatase 51 U/L (35-105); Anion Gap 14.4 (5-19); Aspartate Amino Transferase 24 U/L (0-32); Blood Urea Nitrogen 16 mg/dL (8-23); Calcium 9.1 mg/dL (8.5-10.5); Carbon Dioxide 23 mmol/L (22-29); Chloride 107 mmol/L (98-107); Creatinine Clr Calc Pharmacy 35.5675; Globulin 3.3 g/dL (1.3-4.6); Glucose 99 mg/dL (65-115); Osmolality Calculated 293 mOsm/kg (285-295); Phosphorus 2.3 mg/dL (2.5-4.5); Potassium 3.4 mmol/L (3.5-5.1); Sodium 141 mmol/L (136-145); Total Bilirubin 0.9 mg/dL (0.15-1.2); Total Protein 7.1 g/dL (6.6-8.7)
[2024-04-15] MEDS: enoxaparin 40 mg/0.4 mL Syringe SUBCUT (05:05)
[2024-04-15] MEDS: sodium chloride 0.9% 1,000 ML 100 ML IV ×2 (05:07→14:59)
[2024-04-15] MEDS: potassium phosphate (mEq K) 40 MEQ in sodium chloride 0.9% (100 ml) 100 ML 27.25 MEQ IV (09:42)
[2024-04-15] MEDS: ciprofloxacin 400 MG/200 ML PREMIX 200 MG IV ×2 (09:42→20:30)
[2024-04-15] MEDS: atorvastatin 40 mg Tablet 80 MG PO (09:44)
[2024-04-15] MEDS: dilTIAZem 30 mg Tablet PO ×3 (09:44→20:30)
[2024-04-15] MEDS: thyroid 60 mg Tablet PO (09:44)
[2024-04-15] MEDS: aspirin 81 mg EC Tablet PO (09:44)
[2024-04-15] MEDS: pantoprazole 40 mg SDV IVP (09:45)
[2024-04-15 10:14] LABS: Basophils # 0.1 10^3/uL (0.0-0.1); Basophils % 0.7 %; Eosinophils % 0.1 %; Lymphocytes # 1.8 10^3/uL (0.8-4.8); Lymphocytes % 14.3 %; Mean Corpuscular HGB Conc 32.4 g/dL (30-55); Mean Corpuscular Hemoglobin 30.7 pg (27-33); Mean Corpuscular Volume 94.8 fl (85-98); Mean Platelet Volume 9.2 fL (7.4-10.4); Monocytes % 8.2 %; Neutrophils # 9.57 10^3/uL (1.8-7.7); Neutrophils % 76.2 %; Nucleated Red Blood Cells % 0 %; Platelet Count 237 10^3/cmm (157-399); Red Blood Count 4.01 10^6/uL (3.85-5.65); Red Cell Distribution Width 15.2 % (12.1-15.1); White Blood Count 12.55 10^3/uL (3.29-11.43)
--- NOTE | 2024-04-15 16:52 | P.PN_ITS ---
Subjective 2 Subjective: - Patient was seen this morning -Family members at bedside -She is alert to person, to place, not t o time -She still has episodes of confusion, bu t family member said that she is significantly improved compared to last night yesterday -On examination she has focal right-side d neglect or visual field, no focal weakness, she can follow commands, no slurring of words, no facial droop -She is in A-fib heart rates in the 110s , transition to p.o. Cardizem -Did give 1 dose of labetalol overnight for hypertension Vitals/I&O/Wt Last Vital Signs Temp 98.1 F 04/15/24 16:00 Pulse 144 H 04/15/24 16:00 Resp 22 H 04/15/24 16:00 BP 170/140 04/15/24 16:00 Pulse Ox 91 04/15/24 16:00 O2 Del Method Room Air 04/15/24 16:00 O2 Flow Rate 2 04/14/24 16:00 04/15/24 04/15/24 04/15/24 06:59 14:59 22:59 Intake Total 806.667 / 5736.796 9283.167 / 1186.667 Output Total 200 / 1150 Balance 606.667 / 533.735 0541.667 / 1186.667 Weight last 48 hrs Weight 62.686 kg Weight 61.689 kg Weight 61.689 kg Weight 60.781 kg Physical Exam 2 Const: COMMON NORMALS: no acute distress EXAM LIMITATIONS: altered mental status ORIENTATION/CONSCIOUSNESS: Yes awake, Yes oriented to person and Yes oriented to place Eye: COMMON NORMALS: Equal, round and reactive pupils present PUPIL: Yes Equal, round and reactive pupils present Resp: COMMON NORMALS: normal respiratory effort, No retractions, No use of accessory muscles and clear to auscultation bilaterally AUSCULTATION: clear to auscultation bilaterally Cardio: COMMON NORMALS: regular rate, regular rhythm, S1 normal heart sound present and S2 normal heart sound present RATE: regular rate RHYTHM: r egular rhythm HEART SOUNDS: S1 normal heart sound present and S2 normal heart sound present GI: COMMON NORMALS: Normal to inspection, nondistended, normoactive bowel sounds present and non-tender Extremity: COMMON NORMALS: no clubbing, cyanosis or edema and no pedal edema Neuro: SENSORIUM/ORIENTATION: Yes oriented to person and Yes oriented to place Psych: COMMON NORMALS: mental status grossly normal Urinary Catheter Management: Evangelista: Cath Placed During This Visit: yes Reason for Continuing Indwelling Catheter: Required Immobilization for Trauma or Surgery or Anesthesia Urinary Catheter Date of Insertion: 04/14/24 Urinary Catheter Time of Insertion: 15:35 Data 04/15/24 09:32 04/15/24 02:48 Micro: Microbiology 04/13/24 23:03 Blood Culture - Preliminary Blood NEGATIVE TO DATE 04/13/24 23:00 Blood Culture - Preliminary Blood NEGATIVE TO DATE A&P Assessment and plan (1) Left acute arterial ischemic stroke, 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 Area hypoattenuation with loss of hooper-white differentiation in the left posterior RECONCILIATION MACHINE OPERATOR region including portions of the medial/posterior temporal and medial occipital lobes, concerning for acute infarct. 2. Prominent calcification in the region of the left posterior cerebral artery likely causing stenosis/occlusion. 3. Severe chronic microvascular ischemic disease. -Stat head MRI - MR/MR head wo con* [id number] IMPRESSION: Left RECONCILIATION MACHINE OPERATOR territory restricted diffusion consistent with acute infarct. -With right-sided hemineglect, right-sided hemianopsia, encephalopathy -NIH stroke scale 2-3, out of tPA window, not a candidate for endovascular procedure, [facility], stroke service was consulted Plan -Monitor in [facility] ? Neurochecks ? NIH stroke scale ? Aspiration precautions ? Monitor mentation ? Allow for permissive hypertension treat systolic blood pressure greater than 220 or diastolic greater than 120 -Aspirin 81mg -Continue statin -Cardizem 30 mg p.o. every 6 hours for A-fib -Anticoagulant therapy in 5 to 7 days based on clinical progress -Consider repeat head CT in 24 hours -IV fluids -Full code -Lovenox for DVT prophylaxis A-fib with RVR as above Hypothyroidism as above Acute encephalopathy as above, multifactorial, toxic encephalopathy from UTI with ciprofloxacin Plan for today PT OT, speech therapy eval, advance diet as tolerated, repeat head CT, continue ciprofloxacin at Attestations 2 Medical Necessity Statement*: Patient requires hospitalization for left RECONCILIATION MACHINE OPERATOR territory stroke, atrial fibrillation, UTI Diagnoses Left acute arterial ischemic stroke, RECONCILIATION MACHINE OPERATOR (posterior cerebral artery) I63.532 Atrial fibrillation, unspecified type I48.91 Atrial fibrillation type: unspecified Benign hypertension I10 Atrial fibrillation with rapid ventricular response I48.91 Mixed hyperlipidemia E78.2 Adult onset hypothyroidism E03.8
--- NOTE | 2024-04-15 17:05 | CTR_ITS ---
PROCEDURE INFORMATION: Exam: CT Head Without Contrast Exam date and time: 04/15/2024 6:32 PM Age: 78 years old Clinical indication: Other: CVA TECHNIQUE: Imaging protocol: Computed tomography of the head without contrast. Radiation optimization: All CT scans at this facility use at least one of these dose optimization techniques: automated exposure control; mA and/or kV adjustment per patient size (includes targeted exams where dose is matched to clinical indication); or iterative reconstruction. COMPARISON: 1. MR head wo con* [id number] 04/14/2024 9:[address] head wo con* [id number] 04/14/2024 9:21 AM RADIATION DOSE METRICS: Total DLP (mGy-cm): 1049.08 FINDINGS: Brain: There is mild cerebral atrophy. There are moderate deep white matter microangiopathic ischemic changes. No acute hemorrhage is identified. No mass or mass effect is identified. Expected evolution of known left MAINTENANCE SUPERINTENDENT distribution infarct with increasing edema. Cerebral ventricles: Moderately dilated ventricles secondary to atrophy. Paranasal sinuses: The paranasal sinuses are clear. Mastoid air cells: The mastoid air cells are clear. Bones: No acute osseous abnormalities are seen. Stable osseous excrescence arising from the left posterior temporal bone. Soft tissues: Unremarkable. CT/CT head wo con* [id number] IMPRESSION: 1. Expected evolution of known left MAINTENANCE SUPERINTENDENT distribution infarct with increasing edema. No evidence of hemorrhagic conversion. No new acute intracranial pathology. 2. Senescent changes.
[2024-04-16] VITALS (57 sets, daily range): BP systolic 134–192; BP diastolic 81–150; PULSE 77–140; RESP 10–28; TEMP 36.5–37.2; O2SAT 91–96
[2024-04-16 02:38] LABS: Basophils # 0.1 10^3/uL (0.0-0.1); Basophils % 0.7 %; Eosinophils # 0.1 10^3/uL (0.0-0.8); Eosinophils % 0.5 %; Hematocrit 35.4 % (36-47); Lymphocytes # 1.9 10^3/uL (0.8-4.8); Lymphocytes % 15.8 %; Mean Corpuscular HGB Conc 32.8 g/dL (30-55); Mean Corpuscular Hemoglobin 31.6 pg (27-33); Mean Corpuscular Volume 96.5 fl (85-98); Mean Platelet Volume 9.1 fL (7.4-10.4); Monocytes # 1.5 10^3/uL (0.2-0.9); Monocytes % 12.2 %; Neutrophils # 8.64 10^3/uL (1.8-7.7); Neutrophils % 70.5 %; Nucleated Red Blood Cells % 0 %; Platelet Count 163 10^3/cmm (157-399); Red Blood Count 3.67 10^6/uL (3.85-5.65); Red Cell Distribution Width 15.4 % (12.1-15.1); White Blood Count 12.27 10^3/uL (3.29-11.43)
[2024-04-16 02:57] LABS: Alanine Aminotransferase 11 U/L (0-33); Albumin Level 3.9 g/dL (3.5-5.2); Alkaline Phosphatase 54 U/L (35-105); Anion Gap 11.4 (5-19); Aspartate Amino Transferase 24 U/L (0-32); Blood Urea Nitrogen 11 mg/dL (8-23); Calcium 8.1 mg/dL (8.5-10.5); Carbon Dioxide 24 mmol/L (22-29); Chloride 107 mmol/L (98-107); Creatinine Clr Calc Pharmacy 39.0578; Globulin 2.8 g/dL (1.3-4.6); Glucose 111 mg/dL (65-115); Magnesium 1.9 mg/dL (1.7-2.3); Osmolality Calculated 288 mOsm/kg (285-295); Phosphorus 2.4 mg/dL (2.5-4.5); Potassium 3.4 mmol/L (3.5-5.1); Sodium 139 mmol/L (136-145); Total Bilirubin 1.1 mg/dL (0.15-1.2); Total Protein 6.7 g/dL (6.6-8.7)
[2024-04-16] MEDS: dilTIAZem 30 mg Tablet PO ×3 (03:33→09:01)
[2024-04-16] MEDS: enoxaparin 40 mg/0.4 mL Syringe SUBCUT (06:10)
[2024-04-16] MEDS: atorvastatin 40 mg Tablet 80 MG PO (08:24)
[2024-04-16] MEDS: thyroid 60 mg Tablet PO (08:24)
[2024-04-16] MEDS: ciprofloxacin 400 MG/200 ML PREMIX 200 MG IV ×2 (08:25→20:19)
[2024-04-16] MEDS: potassium chloride ER 20 mEq Tablet PO (09:01)
[2024-04-16] MEDS: pantoprazole 40 mg SDV IVP (11:11)
[2024-04-16] MEDS: dilTIAZem 30 mg Tablet 60 MG PO ×2 (12:52→20:20)
[2024-04-16] MEDS: metoprolol tartrate 25 mg Tablet PO (12:53)
--- NOTE | 2024-04-16 13:26 | P.PN_ITS ---
Subjective 2 Subjective: Patient was seen this morning, she was alert to person, to place, not to time, she follows commands, no facial droop no slurring words continues to have productive aphasia, she cannot come up with the words she tells me that they form in her mind but she is not able to come up with them, for example I held up a hairbrush to her and asked her what it was she tells me she knows what it is used for but cannot come up with the words, continues to have right-sided hemineglect, Vitals/I&O/Wt Last Vital Signs Temp 97.7 F 04/16/24 08:00 Pulse 140 H 04/16/24 08:00 Resp 28 H 04/16/24 08:00 BP 134/108 04/16/24 08:00 Pulse Ox 96 04/16/24 07:20 O2 Del Method Room Air 04/16/24 07:20 O2 Flow Rate 2 04/14/24 16:00 04/15/24 04/16/24 04/16/24 22:59 06:59 14:59 Intake Total 669.0909 / 1855.7579 1440 / 1440 Output Total 1600 / 1600 1400 / 3000 Balance -930.9091 / 255.7579 -1400 / -1144.2421 1440 / 1440 Weight last 48 hrs Weight 60.464 kg Weight 62.686 kg Physical Exam 2 Const: COMMON NORMALS: no acute distress ORIENTATION/CONSCIOUSNESS: Yes awake, Yes oriented to person and Yes oriented to place; not oriented to time Eye: COMMON NORMALS: Equal, round and reactive pupils present and EOMs intact bilaterally PUPIL: Yes Equal, round and reactive pupils present Resp: COMMON NORMALS: normal respiratory effort, No retractions, No use of accessory muscles and clear to auscultation bilaterally AUSCULTATION: clear to auscultation bilaterally Cardio: COMMON NORMALS: regular rate, regular rhythm, S1 normal heart sound present and S2 normal heart sound present RATE: regular rate RHYTHM: r egular rhythm HEART SOUNDS: S1 normal heart sound present and S2 normal heart sound present GI: COMMON NORMALS: Normal to inspection, nondistended, normoactive bowel sounds present and non-tender Extremity: COMMON NORMALS: no clubbing, cyanosis or edema and no pedal edema Neuro: SENSORIUM/ORIENTATION: Yes oriented to person, Yes oriented to place and No oriented to time Psych: COMMON NORMALS: mental status grossly normal Urinary Catheter Management: Evangelista: Cath Placed During This Visit: yes Reason for Continuing Indwelling Catheter: Accurate Measurement of Urinary Output in Critically Ill Patients Urinary Catheter Date of Insertion: 04/14/24 Urinary Catheter Time of Insertion: 15:35 Data 04/16/24 02:30 04/16/24 02:30 Micro: Microbiology 04/14/24 18:01 Urine Culture - Preliminary Urine,Clean Catch A&P Assessment and plan (1) Left acute arterial ischemic stroke, 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 Area hypoattenuation with loss of hooper-white differentiation in the left posterior OPERATION SUPERVISOR region including portions of the medial/posterior temporal and medial occipital lobes, concerning for acute infarct. 2. Prominent calcification in the region of the left posterior cerebral artery likely causing stenosis/occlusion. 3. Severe chronic microvascular ischemic disease. -Stat head MRI - MR/MR head wo con* [id number] IMPRESSION: Left OPERATION SUPERVISOR territory restricted diffusion consistent with acute infarct. -With right-sided hemineglect, right-sided hemianopsia, encephalopathy -NIH stroke scale 2-3, out of tPA window, not a candidate for endovascular procedure, [facility], stroke service was consulted -head ct CT/CT head wo con* [id number] IMPRESSION: 1. Expected evolution of known left OPERATION SUPERVISOR distribution infarct with increasing edema. No evidence of hemorrhagic conversion. No new acute intracranial pathology. 2. Senescent changes. -Right-sided hemineglect, productive aphasia, word finding difficulty, word salad Plan -Monitor in [facility]SU ? Neurochecks ? NIH stroke scale ? Aspiration precautions ? Monitor mentation -Aspirin 81mg, family decline -Continue statin -Cardizem 60 mg p.o. every 6 hours for A-fib, metoprolol 25 mg po BID -Anticoagulant therapy in 5 to 7 days based on clinical progress -Full code -Lovenox for DVT prophylaxis A-fib with RVR as above -cardizem 60mg PO q6hrs -metoprolol 25 mg po BID Hypothyroidism as above Acute encephalopathy as above, multifactorial, toxic encephalopathy from UTI with ciprofloxacin Echocardiogram results as below Normal left ventricular size and , EF 60%. Moderate hypokinesia of the basal inferior wall segment Wall motion abnormality as mentioned above. Moderately increased left atrial size. Mildly increased right atrial size. Mild mitral valve regurgitation. Trace aortic valve regurgitation. Trace tricuspid valve regurgitation. Mild pulmonary valve regurgitation. There is no pericardial effusion. There are no intracardiac masses. Compared to the study from 07/26/2023, there may not be a significant change Attestations 2 Medical Necessity Statement*: Left OPERATION SUPERVISOR territory stroke, afib rvr, acute encephalopathy secondary to UTI Diagnoses Left acute arterial ischemic stroke, OPERATION SUPERVISOR (posterior cerebral artery) I63.532 Atrial fibrillation, unspecified type I48.91 Atrial fibrillation type: unspecified Benign hypertension I10 Atrial fibrillation with rapid ventricular response I48.91 Mixed hyperlipidemia E78.2 Adult onset hypothyroidism E03.8
[2024-04-16] MEDS: hyDRALAzine 25 mg Tablet 10 MG PO ×2 (15:42→20:20)
[2024-04-16] MEDS: metoprolol tartrate 25 mg Tablet 50 MG PO (20:20)
[2024-04-17] MEDS: hyDRALAzine 25 mg Tablet 10 MG PO ×2 (02:23→08:06)
[2024-04-17] MEDS: dilTIAZem 30 mg Tablet 60 MG PO ×2 (02:24→08:07)
[2024-04-17 04:00] VITALS: BP 124/78; PULSE 87; RESP 22; TEMP 36.5; O2SAT 96
[2024-04-17 04:11] LABS: Basophils # 0.1 10^3/uL (0.0-0.1); Basophils % 0.8 %; Eosinophils # 0.1 10^3/uL (0.0-0.8); Eosinophils % 1.1 %; Hematocrit 35.8 % (36-47); Lymphocytes # 1.7 10^3/uL (0.8-4.8); Lymphocytes % 14.2 %; Mean Corpuscular HGB Conc 33.5 g/dL (30-55); Mean Corpuscular Hemoglobin 31.5 pg (27-33); Mean Platelet Volume 9.5 fL (7.4-10.4); Monocytes # 1.6 10^3/uL (0.2-0.9); Monocytes % 13.4 %; Neutrophils # 8.56 10^3/uL (1.8-7.7); Nucleated Red Blood Cells % 0 %; Platelet Count 160 10^3/cmm (157-399); Red Blood Count 3.81 10^6/uL (3.85-5.65); Red Cell Distribution Width 15.2 % (12.1-15.1); White Blood Count 12.23 10^3/uL (3.29-11.43)
[2024-04-17 04:35] LABS: Alanine Aminotransferase 13 U/L (0-33); Albumin Level 3.9 g/dL (3.5-5.2); Alkaline Phosphatase 59 U/L (35-105); Anion Gap 13.5 (5-19); Aspartate Amino Transferase 26 U/L (0-32); Blood Urea Nitrogen 10 mg/dL (8-23); Calcium 8.3 mg/dL (8.5-10.5); Carbon Dioxide 23 mmol/L (22-29); Chloride 105 mmol/L (98-107); Creatinine Clr Calc Pharmacy 38.7541; Globulin 2.9 g/dL (1.3-4.6); Glucose 106 mg/dL (65-115); Osmolality Calculated 285 mOsm/kg (285-295); Phosphorus 2.2 mg/dL (2.5-4.5); Potassium 3.5 mmol/L (3.5-5.1); Sodium 138 mmol/L (136-145); Total Bilirubin 1.1 mg/dL (0.15-1.2); Total Protein 6.8 g/dL (6.6-8.7)
[2024-04-17] MEDS: enoxaparin 40 mg/0.4 mL Syringe SUBCUT (06:06)
[2024-04-17 07:33] VITALS: BP 155/105; PULSE 85; RESP 16; TEMP 37.1; O2SAT 97
[2024-04-17] MEDS: thyroid 60 mg Tablet PO (08:06)
[2024-04-17] MEDS: metoprolol tartrate 25 mg Tablet 50 MG PO (08:06)
[2024-04-17] MEDS: ciprofloxacin 400 MG/200 ML PREMIX 200 MG IV (08:07)
[2024-04-17] MEDS: atorvastatin 40 mg Tablet 80 MG PO (08:07)
--- NOTE | 2024-04-17 09:24 | PC.SOCIAL ---
IMM Update pg 2 of IMM Updated and reviewed w/ patient. Copy provided and copy dated, initialed and placed in chart.
--- NOTE | 2024-04-17 10:51 | PM.DCS ---
Discharge Providers Date of Admission: 04/14/24 10:51 Date of Discharge: April 17, 2024 Attending Provider at Admission: Jimmy Chambers MD Attending Provider at Discharge: Mckinley Jane MD Primary Care Provider: KATE Hamm Diagnoses at Discharge Discharge Diagnosis (1) Left acute arterial ischemic stroke, BARBER OR BEAUTY SHOP MANAGER (posterior cerebral artery): Status: Acute (2) Atrial fibrillation: Status: Chronic Qualifiers: Atrial fibrillation type: unspecified Qualified Code(s): I48.91 - Unspecified atrial fibrillation (3) Benign hypertension: Status: Chronic (4) Atrial fibrillation with rapid ventricular response: Status: Acute (5) Mixed hyperlipidemia: Status: Chronic (6) Adult onset hypothyroidism: Status: Chronic Reason for Visit Reason for Visit: possible stroke Hospital Course Hospital Course This is a 78-year-old female with a past medical history of hypothyroidism, hypertension, atrial fibrillation who presented to [facility] for concerns for slurred speech, confusion, right-sided weakness -On ER evaluation code stroke was called, patient was out of the window for tPA, patient had stopped taking Eliquis about a month ago due to concerns for side effects -On evaluation by ER physician and hospital service stroke scale was 0 -CT head had no acute findings -CTA head and neck no large vessel occlusion -During my evaluation at 04/14/2024, patient had right sided hemianopsia, right-sided hemineglect, confusion, word finding difficulty, productive aphasia, word salad -Repeat head CT -Head CTACCESSION #: [id number] CT/CT head wo con* [id number] IMPRESSION: 1. Area hypoattenuation with loss of hooper-white differentiation in the left posterior BARBER OR BEAUTY SHOP MANAGER region including portions of the medial/posterior temporal and medial occipital lobes, concerning for acute infarct. 2. Prominent calcification in the region of the left posterior cerebral artery likely causing stenosis/occlusion. 3. Severe chronic microvascular ischemic disease. -Stat head MRI - MR/MR head wo con* [id number]: Left BARBER OR BEAUTY SHOP MANAGER territory restricted diffusion consistent with acute infarct. -Spoke to [facility], teleneurology reviewed images reviewed case, out of the window for tPA, area of stroke is not amenable to endovascular procedure, they recommended medical management anticoagulation within 5 to 7 days -Patient was medically managed as inpatient, allowed for permissive hypertension, IV fluids, kept flat for about 24 hours -Gradually her A-fib was managed with Cardizem -As her mentation improved, she was taken off IV fluids, dose of Cardizem was slowly increased, additional blood pressure medications were added -On discharge she will be discharged on Cardizem 180 mg daily, with metoprolol 50 twice daily for her atrial fibrillation at -For her hypertension hydralazine 10 mg p.o. 4 times daily -In terms of her symptomatology, patient continues to have right-sided hemianopsia right-sided hemineglect, no other focal neurologic deficits, no focal weakness, no slurring of words no facial droop, no lower extremity weakness but does have word finding difficulty, word salad, productive aphasia -She was discharged home with outpatient PT OT and speech therapy -Discharged with a close follow-up with neurology as outpatient .-Due to concerns for intolerance Eliquis, she was discharged on Xarelto 20 mg at bedtime to be taken starting 04/19/2024 -Patient family were advised if she were to have any recurrent strokelike symptoms to immediately call 911 -Patient's and family declined aspirin due to concerns for adverse side effect -For hypothyroidism, discharged on levothyroxine recheck TSH in 2 to 4 weeks -See primary care provider within a few days for slow titration of blood pressure medications -Patient is echocardiogram Echocardiogram results as below Normal left ventricular size and , EF 60%. Moderate hypokinesia of the basal inferior wall segment Wall motion abnormality as mentioned above. Moderately increased left atrial size. Mildly increased right atrial size. Mild mitral valve regurgitation. Trace aortic valve regurgitation. Trace tricuspid valve regurgitation. Mild pulmonary valve regurgitation. There is no pericardial effusion. There are no intracardiac masses. Compared to the study from 07/26/2023, there may not be a significant change -Patient denies any chest pain, follow-up cardiology as outpatient for consideration of stress testing, discharged on Xarelto, beta-flavio, statin -Concerns for acute toxic encephalopathy secondary to UTI, discharged on p.o. antibiotics as outpatient Physical Exam Const: COMMON NORMALS: no acute distress ORIENTATION/CONSCIOUSNESS: Yes awake, Yes oriented to person and Yes oriented to place; not oriented to time Resp: COMMON NORMALS: normal respiratory effort, No retractions, No use of accessory muscles and clear to auscultation bilaterally AUSCULTATION: clear to auscultation bilaterally Cardio: COMMON NORMALS: regular rate, regular rhythm, S1 normal heart sound present and S2 normal heart sound present RATE: regular rate RHYTHM: regular rhythm HEART SOUNDS: S1 normal heart sound present and S2 normal heart sound present GI: COMMON NORMALS: Normal to inspection, nondistended, normoactive bowel sounds present and non-tender Extremity: COMMON NORMALS: no calf tenderness and no pedal edema Neuro: COMMON NORMALS: CN's II-XII intact bilaterally, moves all extremities and no focal motor deficits SENSORIUM/ORIENTATION: Yes oriented to person, Yes oriented to place and No oriented to time Psych: COMMON NORMALS: mental status grossly normal Urinary Catheter Management: Evangelista: Cath Placed During This Visit: yes, but has since been removed by the nurse Reason for Continuing Indwelling Catheter: Decision to DC Catheter Urinary Catheter Date of Insertion: 04/14/24 Urinary Catheter Time of Insertion: 15:35 Date Urinary Catheter Removed: 04/16/24 Time Urinary Catheter Discontinued: 11:00 Discharge Data Studies Completed and Pending Completed Studies During Hospitalization Category Date Time Status CT angio headneck* [id number] Stat Cat Scan 04/13/24 22:[address] head thrombolytic [id number] Stat Cat Scan 04/13/24 22:[address] head wo con* [id number] Routine Cat Scan 04/15/24 17:[address] head wo con* [id number] Stat Cat Scan 04/14/24 09:12 Completed XR chest 1V portable [id number] Stat Exams 04/13/24 22:45 Completed MR head wo con* [id number] Stat MRI 04/14/24 09:13 Completed CV. echo complete* [id number] Routine Ultrasound 04/14/24 14:13 Completed Pending at discharge Category Date Time Status Blood Culture Stat Lab 04/13/24 23:03 Results Urine Culture Routine Lab 04/14/24 18:01 Results Radiology Impressions Head/Neck CTA 04/13/24 22:34 IMPRESSION: No significant intracranial vascular findings. IMPRESSION: No significant carotid or vertebral stenosis. REFERENCES: NASCET CRITERIA. The degree of stenosis in the cervical segment of the internal carotid artery is based on NASCET criteria. Normal is no stenosis. Mild is less than 50% stenosis. Moderate is 50-69% stenosis. Severe is 70% to 99% stenosis. Total occlusion is no detectable patent lumen. Chest X-Ray 04/13/24 22:45 IMPRESSION: No acute findings. Head MRI 04/14/24 09:13 IMPRESSION: Left BARBER OR BEAUTY SHOP MANAGER territory restricted diffusion consistent with acute infarct. ADDENDUM: 04/14/24 1021 THIS REPORT CONTAINS FINDINGS THAT MAY BE CRITICAL TO PATIENT CARE. The findings were verbally communicated via telephone conference with MCKINLEY Lyles at 10:20 AM OBSTETRICS/GYNECOLOGY NURSE on 04/14/2024. The findings were acknowledged and understood. Head CT 04/15/24 17:05 IMPRESSION: 1. Expected evolution of known left BARBER OR BEAUTY SHOP MANAGER distribution infarct with increasing edema. No evidence of hemorrhagic conversion. No new acute intracranial pathology. 2. Senescent changes. Laboratory Results WBC 12.23 10^3/uL (3.29-11.43) H 04/17/24 03:39 RBC 3.81 10^6/uL (3.85-5.65) L 04/17/24 03:39 Hgb 12.00 g/dL (11.27-16.99) 04/17/24 03:39 Hct 35.8 % (36-47) L 04/17/24 03:39 MCV 94.0 fl (85-98) 04/17/24 03:39 MCH 31.5 pg (27-33) 04/17/24 03:39 MCHC 33.5 g/dL (30-55) 04/17/24 03:39 RDW 15.2 % (12.1-15.1) H 04/17/24 03:39 Plt Count 160 10^3/cmm (157-399) 04/17/24 03:39 MPV 9.5 fL (7.4-10.4) 04/17/24 03:39 Neut % (Auto) 70.0 % 04/17/24 03:39 Lymph % (Auto) 14.2 % 04/17/24 03:39 Cataño % (Auto) 13.4 % 04/17/24 03:39 Eos % (Auto) 1.1 % 04/17/24 03:39 Baso % (Auto) 0.8 % 04/17/24 03:39 Neut # (Auto) 8.56 10^3/uL (1.8-7.7) H 04/17/24 03:39 Lymph # (Auto) 1.7 10^3/uL (0.8-4.8) 04/17/24 03:39 Cataño # (Auto) 1.6 10^3/uL (0.2-0.9) H 04/17/24 03:39 Eos # (Auto) 0.1 10^3/uL (0.0-0.8) 04/17/24 03:39 Baso # (Auto) 0.1 10^3/uL (0.0-0.1) 04/17/24 03:39 Nucleated RBC % (auto) 0 % 04/17/24 03:39 Nucleated RBCs # 0.0 /100WBC 04/17/24 03:39 PT 13.90 SECONDS (12.1-14.9) 04/13/24 23:00 INR 1.04 (0.8-1.2) 04/13/24 23:00 APTT 34.3 SECONDS (23.9-36.7) 04/14/24 11:33 Specimen Type Arterial 04/13/24 23:33 Sample Site Brachial, right 04/13/24 23:33 ABG pH 7.38 (7.35-7.45) 04/13/24 23:33 ABG pCO2 35.1 mmHg (35-45) 04/13/24 23:33 ABG pO2 79.7 mmHg (80.0-100.0) L 04/13/24 23:33 ABG HCO3 20.8 mmol/L (22-26) L 04/13/24 23:33 ABG Base Excess -3.7 mmol/L (-2.0-2.0) L 04/13/24 23:33 Harshil Test N/a 04/13/24 23:33 Hematocrit 41.0 % (37-47) 04/13/24 23:33 O2 Delivery Device Room air 04/13/24 23:33 Kettle Room Helper ID [email or web address] 04/13/24 23:33 Sodium 138 mmol/L (136-145) 04/17/24 03:39 Potassium 3.5 mmol/L (3.5-5.1) 04/17/24 03:39 Chloride 105 mmol/L (98-107) 04/17/24 03:39 Carbon Dioxide 23 mmol/L (22-29) 04/17/24 03:39 Anion Gap 13.5 (5-19) 04/17/24 03:39 BUN 10 mg/dL (8-23) 04/17/24 03:39 Creatinine 1.1 mg/dL (0.5-0.9) H 04/17/24 03:39 GFR Calculation Not Reportable 04/17/24 03:39 Glucose 106 mg/dL (65-115) 04/17/24 03:39 POC Glucose 142 mg/dL (70-110) H 04/13/24 22:25 Estimat Average Glucose 114 04/13/24 23:00 Hemoglobin A1c 5.6 % (4.0-6.0) 04/13/24 23:00 Calculated Osmolality 285 mOsm/kg (285-295) 04/17/24 03:39 Lactic Acid 2.1 mmol/L (0.5-2.2) 04/13/24 23:00 Lactic Acid (Sepsis) 1.4 mmol/L (0.5-2.2) 04/14/24 04:02 Calcium 8.3 mg/dL (8.5-10.5) L 04/17/24 03:39 Phosphorus 2.2 mg/dL (2.5-4.5) L 04/17/24 03:39 Magnesium 2.0 mg/dL (1.7-2.3) 04/17/24 03:39 Total Bilirubin 1.1 mg/dL (0.15-1.2) 04/17/24 03:39 AST 26 U/L (0-32) 04/17/24 03:39 ALT 13 U/L (0-33) 04/17/24 03:39 Alkaline Phosphatase 59 U/L (35-105) 04/17/24 03:39 Troponin T Baseline 26 ng/L (0-10) H 04/13/24 23:00 Troponin T 120 Minute 23.75 ng/L (0-10) H 04/14/24 01:01 Delta Troponin T -2.25 ABS# (0-10) L 04/14/24 01:01 Troponin T Hi Sens 6Hr 26.21 ng/L (0-10) H 04/14/24 04:02 Troponin T Hi Sens 6Hr Delta 0.21 ng/L (0-12) 04/14/24 04:02 C-Reactive Protein 3.0 mg/L (0.0-4.9) 04/13/24 23:00 NT-Pro-B Natriuret Pep 4004 pg/mL (0-450) H 04/13/24 23:00 Total Protein 6.8 g/dL (6.6-8.7) 04/17/24 03:39 Albumin 3.9 g/dL (3.5-5.2) 04/17/24 03:39 Globulin 2.9 g/dL (1.3-4.6) 04/17/24 03:39 Triglycerides 143 mg/dL (0-150) 04/14/24 11:33 Cholesterol 280 mg/dL (0-200) H 04/14/24 11:33 LDL Cholesterol, Calc 212 mg/dL (50-129) H 04/14/24 11:33 HDL Cholesterol 39 mg/dL (60-100) L 04/14/24 11:33 LDL/HDL Ratio 5.44 RATIO (0.00-3.22) H 04/14/24 11:33 Cholesterol/HDL Ratio 7.18 mg/dL (0.0-4.40) H 04/14/24 11:33 Vitamin B12 1274 pg/mL (232-1245) H 04/14/24 01:01 TSH 21.63 uIU/mL (0.27-4.20) H 04/14/24 01:01 Free T4 0.65 ng/dL (0.82-1.77) L 04/14/24 04:02 Free T3 1.7 PG/ML (2.0-4.4) L 04/14/24 04:02 Urine Color Red (Yellow) A 04/14/24 18:01 Urine Appearance Clear (CLEAR) 04/14/24 18:01 Urine pH 6.0 (5-7) 04/14/24 18:01 Ur Specific [place] 1.016 (1.005-1.030) 04/14/24 18:01 Urine Protein 2+ (Negative) A 04/14/24 18:01 Urine Glucose (UA) Negative (Normal) 04/14/24 18:01 Urine Ketones Negative (Negative) 04/14/24 18:01 Urine Blood 3+ (Negative) A 04/14/24 18:01 Urine Nitrate Negative (Negative) 04/14/24 18:01 Urine Bilirubin Negative (Negative) 04/14/24 18:01 Urine Urobilinogen 0.2 mg/dL (Negative) 04/14/24 18:01 Ur Leukocyte Esterase 2+ (Negative) A 04/14/24 18:01 Urine RBC 50-80 /hpf (0-2) H 04/14/24 18:01 Urine WBC 25-40 /hpf (0-5) H 04/14/24 18:01 Ur Squamous Epith Cells 5-10 /hpf (0-5) H 04/14/24 18:01 Amorphous Sediment Not Reportable 04/14/24 18:01 Urine Bacteria 1+ /hpf (NONE) H 04/14/24 18:01 Hyaline Casts 0-4 /lpf H 04/13/24 23:29 Urine Opiates Screen Negative ng/mL (Negative) 04/13/24 23:29 Ur Barbiturates Screen Negative ng/mL (Negative) 04/13/24 23:29 Ur Phencyclidine Scrn Negative ng/mL (Negative) 04/13/24 23:29 Ur Amphetamines Screen Negative ng/mL (Negative) 04/13/24 23:29 U Benzodiazepines Scrn Negative ng/mL (Negative) 04/13/24 23:29 Urine Cocaine Screen Negative ng/mL (Negative) 04/13/24 23:29 U Marijuana (THC) Screen Negative ng/mL (Negative) 04/13/24 23:29 Ethyl Alcohol < 10 mg/dL (0-10) 04/13/24 23:00 Vitals Last Vital Signs Temp 98.8 F 04/17/24 07:33 Pulse 85 04/17/24 07:33 Resp 16 04/17/24 07:33 BP 155/105 04/17/24 07:33 Pulse Ox 97 04/17/24 07:33 O2 Del Method Room Air 04/17/24 07:33 O2 Flow Rate 2 04/14/24 16:00 Discharge Plan Discharge Patient Disposition: Home Health Service Condition: Stable Prescriptions: New atorvastatin 40 mg Tablet 40 mg PO DAILY 30 Days Qty: 30 0RF hydralazine 10 mg tablet 10 mg PO QID 30 Days Qty: 120 0RF Xarelto 20 mg tablet 20 mg PO QPM 30 Days Qty: 30 0RF Rx Instructions: must administer with evening meal *start 04/19/2024 ciprofloxacin HCl 500 mg tablet 500 mg PO BID 5 Days Qty: 10 0RF diltiazem HCl [Cardizem CD] 180 mg capsule,extended release 24hr 180 mg PO DAILY 30 Days Qty: 30 0RF thyroid (pork) [SAP PORTAL CONSULTANT Thyroid] 60 mg Tablet 60 mg PO DAILY 30 Days Qty: 30 0RF Continued metoprolol tartrate 50 mg tablet 50 mg PO BID 30 Days Qty: 60 0RF Discharge Orders: Discharge Order (Routine); Ordered 04/17/24 Ordered By: Mckinley Jane Referrals: [facility] [Outside] Leti Moreno MD [Physician] - 1 week (We have notified your physician's clinic of the need for a follow-up appointment to be scheduled. If you have not heard from them within the next 2 business days, please call them directly. ) Antonio Delong FNP-C [Primary Care Provider] - 04/30/24 2:40 pm Oscar Ruvalcaba M.D [Physician] - 1 week Discharge Diet: Cardiac Discharge Activity: Resume usual activity Patient Instructions: Opioid Safety Activity Restrictions/Additional Instructions: - For your stroke please continue outpatient physical therapy and speech therapy -Please continue statin -Please continue beta-flavio as prescribed -Start Xarelto 02/18/2024 -Please have your primary care provider recheck your hemoglobin next week -If you have worsening strokelike symptoms please go to emergency room or call 911 -Follow-up with neurology in 1 week -Follow-up with cardiology in 1 week -Have your primary care provider recheck your thyroid function in 2 to 4 weeks -If you develop chest pain please go to the emergency room Discharge Attestations Time Spent in Discharge Care*: greater than 30 min Quality Metrics Clinical Quality Measures [ Cerebrovascular Accident { Contraindication to Antithrombotic: Drug allergy; Contraindication to Anticoagulation: None; anticoagulation prescribed; Contraindication to Statin: None; Statin prescribed;}. No reported AMI, CVA or VTE this stay] Coding Level of Care Code 25226 Total time (in minutes) for Discharge: 45 Diagnoses Left acute arterial ischemic stroke, BARBER OR BEAUTY SHOP MANAGER (posterior cerebral artery) I63.532 Atrial fibrillation, unspecified type I48.91 Atrial fibrillation type: unspecified Benign hypertension I10 Atrial fibrillation with rapid ventricular response I48.91 Mixed hyperlipidemia E78.2 Adult onset hypothyroidism E03.8
[2024-04-17 11:27] VITALS: BP 145/92; PULSE 76; RESP 18; TEMP 36.6; O2SAT 96
[2024-04-17] MEDS: pantoprazole 40 mg SDV IVP (11:36)
[2024-04-17 11:55] VITALS: BP 145/92; PULSE 76; O2SAT 94
== END 2024-04-17 12:26 | disposition home health service (06) | DRG 64 ==
LOC: ER 22:37 → CSU 23:36
PROVIDERS: Admitting Provider Internal Medicine; Emergency Provider Emergency Medicine; PCP Nurse Practitioner; Visit Provider Family Medicine
DX: I63.532 Cerebral infarction due to unspecified occlusion or stenosis of left posterior cerebral artery (principal); G92.8 Other toxic encephalopathy; G81.91 Hemiplegia, unspecified affecting right dominant side; N39.0 Urinary tract infection, site not specified; R47.01 Aphasia; E03.9 Hypothyroidism, unspecified; I10 Essential (primary) hypertension; I48.91 Unspecified atrial fibrillation; R00.0 Tachycardia, unspecified; I95.9 Hypotension, unspecified; E78.2 Mixed hyperlipidemia; M48.54XS Collapsed vertebra, not elsewhere classified, thoracic region, sequela of fracture; Z91.128 Patient's intentional underdosing of medication regimen for other reason; Z87.891 Personal history of nicotine dependence; Z80.3 Family history of malignant neoplasm of breast; Z80.7 Family history of other malignant neoplasms of lymphoid, hematopoietic and related tissues; Z83.3 Family history of diabetes mellitus; Z82.49 Family history of ischemic heart disease and other diseases of the circulatory system
CPT/HCPCS: 36415; 36416; 36600; 51702; 70450; 70496; 70498; 70551; 71045; 80048; 80053; 80061; 80306; 80307; 81001; 82607; 82803; 82962; 83036; 83605; 83735; 83880; 84100; 84439; 84443; 84481; 84484; 85025; 85610; 85730; 86140; 87040; 87086; 92507; 92523; 92610; 93005; 93306; 94664; 96365; 96372; 97110; 97112; 97116; 97161; 97167; 97535; 99285; A9270; G0378; J0744; J1650; J2405; J2470; J3490; J7030

== ENCOUNTER → 2024-04-24 14:26 | Outpatient (BNVA) | payer MEDICARE, SELFPAY | PROVIDERS: PCP Nurse Practitioner; Visit Provider Nurse Practitioner Family | DX: I48.91 Unspecified atrial fibrillation (principal); R06.02 Shortness of breath; E78.2 Mixed hyperlipidemia; R94.31 Abnormal electrocardiogram [ECG] [EKG] | CPT/HCPCS: 36415; 80053; 85025; 93005 ==

== ENCOUNTER → 2024-06-25 07:53 | Outpatient (BNVA) | payer MEDICARE, SELFPAY | PROVIDERS: PCP Nurse Practitioner; Visit Provider Specialist | DX: I63.532 Cerebral infarction due to unspecified occlusion or stenosis of left posterior cerebral artery (principal); I48.91 Unspecified atrial fibrillation; R48.0 Dyslexia and alexia; Z87.891 Personal history of nicotine dependence | CPT/HCPCS: 99205 ==

== ENCOUNTER → 2024-06-27 13:56 | Outpatient (BNVA) | payer MEDICARE, SELFPAY | PROVIDERS: PCP Nurse Practitioner; Visit Provider Nurse Practitioner | DX: E03.8 Other specified hypothyroidism (principal) | CPT/HCPCS: 80048; 84443 ==

== ENCOUNTER → 2024-07-30 08:34 | Outpatient (BNVA) | payer MEDICARE, SELFPAY | PROVIDERS: PCP Nurse Practitioner; Visit Provider Nurse Practitioner | DX: E03.8 Other specified hypothyroidism (principal) | CPT/HCPCS: 84443 ==

== ENCOUNTER → 2024-09-18 13:57 | Outpatient (BNVA) | payer MEDICARE, SELFPAY | PROVIDERS: PCP Nurse Practitioner; Visit Provider Nurse Practitioner | DX: I10 Essential (primary) hypertension (principal); E03.8 Other specified hypothyroidism | CPT/HCPCS: 80053; 84443 ==

== ENCOUNTER 2024-11-19 12:11 | Emergency (ER) | payer MEDICARE, SELFPAY ==
[2024-11-19 12:21] VITALS: BP 161/100; PULSE 98; RESP 18; TEMP 36.7; O2SAT 96
--- OUTSIDE RECORDS SUMMARY | 2024-11-19 12:25 | XMS_ITS | Patient Health Record ---
Author Organization [facility] Address [address] [place] [address] Care Team Providers Care Business Area Manager Name Role Phone Christi Decker Primary Care Provider CHRISTI DECKER Unavailable Unavailable Allergies No Known Allergies Reason For Referral No Information Medications Medication SIG (Take, Route, Frequency, Duration) Notes Start Date End Date Status [place] Thyroid 120 MG TAKE 1 TABLET BY MOUTH ONCE DAILY ON AN EMPTY STOMACH for 90 Active Fish Oil 1000 MG 2 capsule Orally Once a day Active Synthroid 150 MCG 1 tablet in the morning on an empty stomach Orally Once a day for 30 days Will need Synthroid and stop levothyroxine. 09/20/2022 Not-Taking Apple Cider Vinegar 500 MG as directed Orally Active Zinc 50 MG 1 tablet Orally Once a day Active Magnesium 250 MG 1 tablet with a meal Orally Once a day Active Vitamin D 50 MCG (2000 UT) 1 tablet Orally Once a day Active Pradaxa 150 MG 1 capsule Orally Twice a day for 30 days 06/26/2023 Not-Taking Naproxen 500 MG 1 tablet Orally Twice a day as needed for 30 day(s) 12/17/2019 Not-Taking Aspirin 81 81 MG 1 tablet Orally Once a day Active amLODIPine Besylate 10 MG 1 tablet Orally Once a day for 30 days Not-Taking Albuterol Sulfate HFA 108 (90 Base) MCG/ACT 2 puffs as needed Inhalation every 4-6 hrs 06/26/2023 Active Metoprolol Tartrate 25 MG 1 tablet with food Orally Twice a day for 30 days 06/26/2023 Active Immunizations Vaccine Route Administration Date Status Comme nts Influenza (split), seasonal, intradermal, preservative free Unknown 09/30/2021 Refused zzTetanus toxoid, absorbed IM Intramuscular 08/01/2022 Administered [id number] Patient tolerated well Social History Tobacco Use: Social History Observation Description Date Details (start date - stop date) Former Smoker NA - NA xTobacco Use/Smoking Question Answer Notes Are you a former smoker How long has it been since you last smoked? > 10 years PHQ-9 Question Answer Notes Little interest or pleasure in doing things Not at all Feeling down, depressed, or hopeless Not at all Trouble falling or staying asleep, or sleeping t oo much Not at all Feeling tired or having little energy Not at all Poor appetite or overeating Not at all Feeling bad about yourself, or that you are a failure, or have let yourself or your family down Not at all Trouble concentrating on thi ngs, such as reading the newspaper or watching television Not at all Moving or speaking so slowly that other people could have noticed. Or the opposite ? being so fidgety or restless that you have been moving around a lot more than usual Not at all Thoughts that you would be b sheldon off , or of hurting yourself in some way Not at all Total Score 0 Section Notes: 10/05/21 10/05/21 03/28/22 PHQ9 10/05/21 03/28/22 PHQ9 07/06/23 PHQ9 08/06/20 08/06/20 08/06/20 10/05/21 10/05/21 03/28/22 PHQ9 10/05/21 03/28/22 PHQ9 10/05/21 03/28/22 PHQ9 10/05/21 08/06/20 09/07/21 10/05/21 03/28/22 PHQ9 10/05/21 03/28/22 PHQ9 07/06/23 PHQ9 Problems Problem Type SNOMED Code ICD Code Onset Dates Problem Status W/U Status Risk Notes Problem 838478305 Mixed hyperlipidemia (E78.2) Active confirmed Problem [id number] Sciatica, righ t side (M54.31) Active confirmed Problem 69658443 Sciatica, left side (M54.32) Active confirmed Problem 35070478 Other osteoporosis without current pathological fracture (M81.8) Active confirmed Problem Essential hypertension (49123408) Hypertension, unspecified type (I10) Active confirmed Problem 09528439 Hypertension, unspecified type (I10) Active confirmed Problem Vitamin D deficiency (16065754) Vitamin D deficiency (E55.9) Active confirmed Problem Hypothyroidism (15185978) Hypothyroidism, unspecified type (E03.9) Active confirmed Problem Tobacco user (811390906) Cigarette nicotine dependence without complication (F17.210) Active confirmed Problem Atrial fibrillation (78658270) Atrial fibrillation (I48.91) Active confirmed Problem 654244178 Insomnia, unspecified type (G47.00) Active confirmed Encounters Encounter Location Date Provider Diagnosis [address] [id number] 11/24/2023 Christi Decker Plan Of Treatment Pending Test Test Name Order Date Thyroid Stimulating Hormone (TSH) 40771 12/29/2022 Insurance Providers Payer Name Payer Address Payer Phone Subscriber Number Group Number Insured Name Patient Relationship to Insured Coverage Start Date Coverage End Date [place] [address] [place] [phone] [id number] Mis Crow Self - patient is the insured Medical (General) History Medical History History ICD Code hypertension hypothyroidism hyperlipidemia Surgical History Surgery Date(Month/Year) cataract removal
--- NOTE | 2024-11-19 13:28 | W.ED.SKABFB ---
HPI - Skin/Abscess/Foreign Bdy General: Chief complaint: Extremity Injury, Upper Stated complaint: left arm pain, ams Time Seen by Provider: 11/19/24 13:06 Related Data Previous Rx's ?Medication ?Instructions ?Recorded rivaroxaban 20 mg tablet (Xarelto) 20 mg PO QPM 90 days #90 tabs 05/02/24 atorvastatin 40 mg tablet 40 mg PO DAILY #30 tabs 09/18/24 diltiazem HCl 180 mg 180 mg PO DAILY #30 caps 09/18/24 capsule,extended release 24 hr (Cardizem CD) hydralazine 25 mg tablet 25 mg PO BID #60 tabs 09/18/24 metoprolol tartrate 50 mg tablet 50 mg PO BID #180 tabs 09/18/24 thyroid (pork) 90 mg tablet (HUMAN PROJECTILE 90 mg PO DAILY #30 tabs 09/23/24 Thyroid) Allergies Allergy/AdvReac Type Severity Reaction Status Date / Time Penicillins Allergy ADR-Agitate Verified 10/25/24 18:07 d aspirin AdvReac Severe ADR-Vomitin Verified 10/25/24 18:07 g lisinopril AdvReac Severe ADR-Cough Verified 10/25/24 18:07 PFSH ED PFSH: Medical History Influenza vaccination declined by patient Former cigarette smoker Atrial fibrillation Benign hypertension Mixed hyperlipidemia Adult onset hypothyroidism Surgical History History of cataract extraction Family History Sister Cancer Breast, bone, lymphoma Diabetes Hypertension Denies family history of Anesthesia complication Social History Smoking and tobacco/nicotine status: former use of tobacco/nicotine Alcohol intake: never Substance/Drug Use: never Adopted: No Caregiver/support person: Yes (family) Lives independently: Yes Household members: family Housing: House Marital status: / Number of children: 2 Number of grandchildren: 3 Highest education level completed: Some College, No Degree service: No Current occupational status: retired Current occupational exposures/hazards: No Do you think of yourself as: Straight/Heterosexual Current gender identity: Female Course Vital Signs: Vital signs: Vital Signs Temperature 98.0 F 11/19/24 12:21 Pulse Rate 98 11/19/24 12:21 Respiratory Rate 18 11/19/24 12:21 Blood Pressure 161/100 11/19/24 12:21 Pulse Oximetry 96 11/19/24 12:21 Oxygen Delivery Me thod Room Air 11/19/24 12:21 Discharge Plan Discharge Condition: Stable Prescriptions: No Action Xarelto 20 mg tablet 20 mg PO QPM 90 Days Qty: 90 3RF Rx Instructions: must administer with evening meal *start 04/19/2024 atorvastatin 40 mg tablet 40 mg PO DAILY Qty: 30 2RF diltiazem HCl [Cardizem CD] 180 mg capsule,extended release 24hr 180 mg PO DAILY Qty: 30 2RF metoprolol tartrate 50 mg tablet 50 mg PO BID Qty: 180 1RF hydralazine 25 mg tablet 25 mg PO BID Qty: 60 2RF thyroid (pork) [HUMAN PROJECTILE Thyroid] 90 mg tablet 90 mg PO DAILY Qty: 30 2RF Referrals: Antonio Delong, KITCHEN FOOD ASSEMBLER-C [Primary Care Provider, Family Practice] Print Language: Kittitian Coding Level of Care Code ED Terminal Clerk for Juwan Blank
--- NOTE | 2024-11-19 13:35 | ED_ITS ---
HPI - Extremity Problem 2 General: Chief complaint: Extremity Injury, Upper Stated complaint: left arm pain, ams Time Seen by Provider: 11/19/24 13:06 Source: patient Mode of arrival: ambulatory Limitations: no limitations History of Present Illness: Patient is an 79-year-old female presents to ED today with a complaint of pain to her left wrist that she began noticing yesterday. No obvious injury or trauma. Patient initially felt like maybe she was bit by something as she lives out in the [facility] . She has not noticed anything that looks like a bite to resting. She states she has noticed swelling and some overlying redness to the wrist joint. She has not been running fevers. No recent puncture wounds, scrapes, abrasions, recent lab draws. No recent surgeries. No recent treated infections or recent illness. MD Complaint: joint swelling and joint pain Onset (ago): day(s) (yesterday) Pain Consistency: constant Location: left and upper extremity (wrist) Radiation: none Relieving factors: nothing Exacerbating factors: range of motion Associated symptoms: Reports no associated symptoms; Deny chest pain or fever(s) Related Data Previous Rx's ?Medication ?Instructions ?Recorded rivaroxaban 20 mg tablet (Xarelto) 20 mg PO QPM 90 day s #90 tabs 05/02/24 atorvastatin 40 mg tablet 40 mg PO DAILY #30 tabs 08/28 08/20 diltiazem HCl 180 mg 180 mg PO DAILY #30 caps capsule,extended release 24 hr (Cardizem CD) hydralazine 25 mg tablet 25 mg PO BID #60 tabs metoprolol tartrate 50 mg tablet 50 mg PO BID #180 tab s 09/18/24 thyroid (pork) 90 mg tablet (ENVELOPE MAKER 90 mg PO DAILY #30 tab s 09/23/24 Thyroid) doxycycline monohydrate 100 mg 100 mg PO Q12H 7 days # 14 caps 11/19/24 capsule ibuprofen 600 mg tablet 600 mg PO Q8H #15 tabs 11/19 prednisone 10 mg tablet 10 mg PO DAILY 6 days #20 ta bs 11/19/24 Allergies Allergy/AdvReac Type Severity Reaction Status Date / Time Penicillins Allergy ADR-Agitate Verified 10/25/24 18:07 d aspirin AdvReac Severe ADR-Vomitin Verified 05/30/25 18:07 g lisinopril AdvReac Severe ADR-Cough Verified 10/25/24 18:07 Review of Systems 2 Const: Denies: fever(s), chills, body aches, fatigue or malaise Card: Denies: chest pain Resp: Denies: dyspnea Musc: Reports: extremity swelling (L hand), joint pain (L wrist), joint swelling (L wrist), joint redness (L wrist) and joint warmth (L wrist); Denies: neck pain, back pain or extremity pain Neuro: Denies: numbness in extremities, weakness in extremities or sensory changes PFSH ED 2 PFSH: Medical History Influenza vaccination declined by patient Former cigarette smoker Atrial fibrillation Benign hypertension Mixed hyperlipidemia Adult onset hypothyroidism Surgical History History of cataract extraction Family History Sister Cancer Breast, bone, lymphoma Diabetes Hypertension Denies family history of Anesthesia complication Social History Smoking and tobacco/nicotine status: former use of tobacco/nicotine Alcohol intake: never Substance/Drug Use: never Adopted: No Caregiver/support person: Yes (family) Lives independently: Yes Household members: family Housing: House Marital status: / Number of children: 2 Number of grandchildren: 3 Highest education level completed: Some College, No Degree service: No Current occupational status: retired Current occupational exposures/hazards: No Do you think of yourself as: Straight/Heterosexual Current gender identity: Female Physical Exam 2 Const: COMMON NORMALS: no acute distress, average body habitus, no limitations, healthy appearing, alert and well nourished Resp: COMMON NORMALS: normal respiratory effort and clear to auscultation bilaterally AUSCULTATION: clear to auscultation bilaterally Cardio: COMMON NORMALS: regular rate and regular rhythm RATE: regular rate RHYTHM: regular rhythm Extremity: COMMON NORMALS: capillary refill normal GENERAL: Yes normal exam except as noted LEFT UPPER EXTREMITY: Yes wrist (wrist joint is edematous; mild erythema to volar aspect) Left wrist: Yes palpation (reporting tenderness to palpation), Yes ROM (does have discomfort with ROM) and Yes neurovascular exam (normal) and Yes hand & digits (edema to hand; no erythema/warmth) Left hand and digits: Yes palpation (normal palpation of L hand) and Yes neurovascular exam (normal) Neuro: COMMON NORMALS: moves all extremities, no focal motor deficits and no sensory deficits noted SENSORIUM/ORIENTATION: Yes alert Course 2 Vital Signs: Vital signs: Vital Signs Temperature 98.0 F 11/19/24 12:21 Pulse Rate 98 11/19/24 12:21 Respiratory Rate 18 11/19/24 12:21 Blood Pressure 161/100 11/19/24 12:21 Pulse Oximetry 96 11/19/24 12:21 Oxygen Delivery Me thod Room Air 11/19/24 12:21 MDM - Extremity (Nontraumatic) Medical Decision Making DDx-inflammatory arthritis/tendonitis, gout, pseudogout, cellulitis, septic arthritis, etc. No risk factors for septic arthritis on history. XR unremarkable-degenerative changes. White count of 12. Mildly elevated ESR/CRP. Uric acid is normal. Had Dr. Mcdonough also evaluate patient. We will place her on steroids, abx, NSAIDS with recommendations to return for worsening symtpoms. Medical Records I reviewed the patient's medical records. Lab Data I reviewed the patient's lab results. 11/19/24 13:42 11/19/24 13:42 Radiology Impressions Wrist X-Ray 11/19/24 14:10 IMPRESSION: 1. Mild degenerative change and chondrocalcinosis. No fracture. Laboratory Results WBC 12.05 10^3/uL (3.29-11.43) H 11/19/24 13:42 RBC 3.91 10^6/uL (3.85-5.65) 11/19/24 13:42 Hgb 12.10 g/dL (11.27-16.99) 11/19/24 13:42 Hct 36.7 % (36-47) 11/19/24 13:42 MCV 93.9 fl (85-98) 11/19/24 13:42 MCH 30.9 pg (27-33) 11/19/24 13:42 MCHC 33.0 g/dL (30-55) 11/19/24 13:42 RDW 14.2 % (12.1-15.1) 11/19/24 13:42 Plt Count 339 10^3/cmm (157-399) 11/19/24 13:42 MPV 8.7 fL (7.4-10.4) 11/19/24 13:42 Neut % (Auto) 74.0 % 11/19/24 13:42 Lymph % (Auto) 10.7 % 11/19/24 13:42 [place] % (Auto) 14.1 % 11/19/24 13:42 Eos % (Auto) 0.1 % 11/19/24 13:42 Baso % (Auto) 0.6 % 11/19/24 13:42 Neut # (Auto) 8.92 10^3/uL (1.8-7.7) H 11/19/24 13:42 Lymph # (Auto) 1.3 10^3/uL (0.8-4.8) 11/19/24 13:42 [place] # (Auto) 1.7 10^3/uL (0.2-0.9) H 11/19/24 13:42 Eos # (Auto) 0.0 10^3/uL (0.0-0.8) 11/19/24 13:42 Baso # (Auto) 0.1 10^3/uL (0.0-0.1) 11/19/24 13:42 Nucleated RBC % (auto) 0 % 11/19/24 13:42 Nucleated RBCs # 0.0 /100WBC 11/19/24 13:42 ESR 19 mm/hr (0-15) H 11/19/24 13:42 Sodium 135 mmol/L (136-145) L 11/19/24 13:42 Potassium 4.2 mmol/L (3.5-5.1) 11/19/24 13:42 Chloride 98 mmol/L (98-107) 11/19/24 13:42 Carbon Dioxide 24 mmol/L (22-29) 11/19/24 13:42 Anion Gap 17.2 (5-19) 11/19/24 13:42 BUN 17 mg/dL (8-23) 11/19/24 13:42 Creatinine 1.4 mg/dL (0.5-0.9) H 11/19/24 13:42 GFR Calculation Not Reportable 11/19/24 13:42 Glucose 114 mg/dL (65-115) 11/19/24 13:42 Calculated Osmolality 282 mOsm/kg (285-295) L 11/19/24 13:42 Lactic Acid 0.9 mmol/L (0.5-2.2) 11/19/24 13:42 Uric Acid 3.9 mg/dL (2.4-5.7) 11/19/24 13:42 Calcium 9.9 mg/dL (8.5-10.5) 11/19/24 13:42 Total Bilirubin 0.5 mg/dL (0.15-1.2) 11/19/24 13:42 AST 16 U/L (0-32) 11/19/24 13:42 ALT 13 U/L (0-33) 11/19/24 13:42 Alkaline Phosphatase 88 U/L (35-105) 11/19/24 13:42 C-Reactive Protein 32.0 mg/L (0.0-4.9) H 11/19/24 13:42 Total Protein 8.5 g/dL (6.6-8.7) 11/19/24 13:42 Albumin 4.2 g/dL (3.5-5.2) 11/19/24 13:42 Globulin 4.3 g/dL (1.3-4.6) 11/19/24 13:42 All radiology interpretation(s) finalized by discharge Discharge Plan Discharge Patient Disposition: Home Clinical Impression: Pain and swelling of left wrist Condition: Stable Prescriptions: New prednisone 10 mg tablet 10 mg PO DAILY 6 Days Qty: 20 0RF Rx Instructions: Take 5 tabs on day 1-2, 4 tabs on day 3, 3 tabs on day 4, 2 tabs on day 5, and 1 tab on day 6 doxycycline monohydrate 100 mg capsule 100 mg PO Q12H 7 Days Qty: 14 0RF ibuprofen 600 mg tablet 600 mg PO Q8H Qty: 15 0RF No Action Xarelto 20 mg tablet 20 mg PO QPM 90 Days Qty: 90 3RF Rx Instructions: must administer with evening meal *start 04/19/2024 atorvastatin 40 mg tablet 40 mg PO DAILY Qty: 30 2RF diltiazem HCl [Cardizem CD] 180 mg capsule,extended release 24hr 180 mg PO DAILY Qty: 30 2RF metoprolol tartrate 50 mg tablet 50 mg PO BID Qty: 180 1RF hydralazine 25 mg tablet 25 mg PO BID Qty: 60 2RF thyroid (pork) [ENVELOPE MAKER Thyroid] 90 mg tablet 90 mg PO DAILY Qty: 30 2RF Discharge Orders: Discharge ED (Routine); Ordered 11/19/24 Ordered By: Araseli Medrano Referrals: Antonio Delong, [facility] [Primary Care Provider, Family Practice] Patient Instructions: Patient Portal & Domingo Instructions Activity Restrictions/Additional Instructions: As we discussed, please fill your medications and start them immediately. You need to return to the emergency department for worsening pain to the wrist, streaking up your forearm, fevers, severe pain with range of motion of the wrist joint or digits/fingers, generally feeling worse or unwell, or any other concerns you may have. Print Language: Luxembourger Coding Level of Care Code ED [employer]ting [employer] Operator for Juwan Blank
[2024-11-19 13:49] LABS: Basophils # 0.1 10^3/uL (0.0-0.1); Basophils % 0.6 %; Eosinophils % 0.1 %; Erythrocyte Sedimentation Rate 19 mm/hr (0-15); Hematocrit 36.7 % (36-47); Lymphocytes # 1.3 10^3/uL (0.8-4.8); Lymphocytes % 10.7 %; Mean Corpuscular Hemoglobin 30.9 pg (27-33); Mean Corpuscular Volume 93.9 fl (85-98); Mean Platelet Volume 8.7 fL (7.4-10.4); Monocytes # 1.7 10^3/uL (0.2-0.9); Monocytes % 14.1 %; Neutrophils # 8.92 10^3/uL (1.8-7.7); Nucleated Red Blood Cells % 0 %; Platelet Count 339 10^3/cmm (157-399); Red Blood Count 3.91 10^6/uL (3.85-5.65); Red Cell Distribution Width 14.2 % (12.1-15.1); White Blood Count 12.05 10^3/uL (3.29-11.43)
[2024-11-19 14:06] LABS: Lactic Sepsis W/Reflex 0.9 mmol/L (0.5-2.2)
[2024-11-19 14:08] LABS: Alanine Aminotransferase 13 U/L (0-33); Albumin Level 4.2 g/dL (3.5-5.2); Alkaline Phosphatase 88 U/L (35-105); Anion Gap 17.2 (5-19); Aspartate Amino Transferase 16 U/L (0-32); Blood Urea Nitrogen 17 mg/dL (8-23); Calcium 9.9 mg/dL (8.5-10.5); Carbon Dioxide 24 mmol/L (22-29); Chloride 98 mmol/L (98-107); Creatinine Clr Calc Pharmacy 30.5199; Globulin 4.3 g/dL (1.3-4.6); Glucose 114 mg/dL (65-115); Osmolality Calculated 282 mOsm/kg (285-295); Potassium 4.2 mmol/L (3.5-5.1); Sodium 135 mmol/L (136-145); Total Bilirubin 0.5 mg/dL (0.15-1.2); Total Protein 8.5 g/dL (6.6-8.7); Uric Acid 3.9 mg/dL (2.4-5.7)
--- NOTE | 2024-11-19 14:10 | XR_ITS ---
WS: [id number] Exam: XR wrist LT min 3V* [id number] Date/Time of Exam: 11/19/2024 2:11 PM Reason For Exam: swelling/pain No acute fracture. Calcification of the triangular fibrocartilage. Mild degenerative change of the radiocarpal joint. Normal soft tissues. XR/XR wrist LT min 3V* [id number] IMPRESSION: 1. Mild degenerative change and chondrocalcinosis. No fracture.
[2024-11-19] MEDS: dexamethasone 10 mg/mL INJ 8 MG IM (14:45)
== END 2024-11-19 14:58 | disposition home or self-care (01) ==
PROVIDERS: Emergency Provider Physician Assistant; PCP Nurse Practitioner
DX: M25.532 Pain in left wrist (principal); Z87.891 Personal history of nicotine dependence; I10 Essential (primary) hypertension; E78.2 Mixed hyperlipidemia
CPT/HCPCS: 36415; 73110; 80053; 83605; 84550; 85025; 85651; 86140; 96372; 99284; J1100

== ENCOUNTER → 2024-12-19 09:57 | Outpatient (BNVA) | payer MEDICARE, SELFPAY | PROVIDERS: PCP Nurse Practitioner; Visit Provider Nurse Practitioner | DX: E03.8 Other specified hypothyroidism (principal); I10 Essential (primary) hypertension; E78.2 Mixed hyperlipidemia; K56.41 Fecal impaction | CPT/HCPCS: 74018; 80053; 81000; 84443 ==

== ENCOUNTER → 2025-01-21 10:13 | Outpatient (BNVA) | payer MEDICARE, SELFPAY | PROVIDERS: PCP Nurse Practitioner; Visit Provider Nurse Practitioner | DX: K59.01 Slow transit constipation (principal); I10 Essential (primary) hypertension; E03.8 Other specified hypothyroidism; N32.89 Other specified disorders of bladder | CPT/HCPCS: 74018; 80053; 81000; 84443; 85025 ==

== ENCOUNTER → 2025-03-05 12:15 | Outpatient (BNVA) | payer MEDICARE, SELFPAY | PROVIDERS: PCP Nurse Practitioner; Visit Provider Nurse Practitioner | DX: E03.8 Other specified hypothyroidism (principal) | CPT/HCPCS: 80048; 84443 ==

== ENCOUNTER → 2025-04-30 11:31 | Outpatient (BNVA) | payer MEDICARE, SELFPAY | PROVIDERS: PCP Nurse Practitioner; Visit Provider Nurse Practitioner | DX: R82.90 Unspecified abnormal findings in urine (principal) | CPT/HCPCS: 87086 ==

== ENCOUNTER 2025-05-12 11:17 | Outpatient (CLI) | payer MEDICARE, SELFPAY ==
--- NOTE | 2025-05-12 12:30 | CT_ITS ---
WS: [id number] CT ABDOMEN AND PELVIS NONCONTRAST HISTORY: K59.01 - Slow transit constipation TECHNIQUE: Imaging performed through the abdomen and pelvis. Coronal and sagittal reformats are submitted. All CT scans at [facility] use at least one of these dose optimization techniques: automated exposure control; mA and/or kV adjustment per patient size (includes targeted exams where dose is matched to clinical indication); or iterative reconstruction. DLP: 288.63 mGy.cm COMPARISON: None available. Lower thorax: Small hiatal hernia. Otherwise negative. Liver: Normal size liver. No mass or bile duct dilatation. Gallbladder: Gallbladder is slightly contracted. There is a mixed density mass measuring 1.9 cm in diameter closely associated with the gallbladder and the hepatic flexure. Favor this is probably stone within the gallbladder containing air. Common bile duct measures 8.6 mm. Pancreas: Normal size and attenuation. Normal pancreatic duct. No pancreatitis or mass. Spleen: Normal size with granulomata. Adrenal glands: Normal. No mass. Right kidney: Normal size kidney at 9.0 cm. Nonobstructing calcifications and arterial calcifications. Left kidney: Atrophy of the entire kidney. Kidney measures 8 cm in length. Mild cortical thinning. Aorta: Dense heavy calcification throughout the abdominal aorta. Heavy calcification continues into the mesenteric arteries. Suspect there is probably a component of stenosis involving the SMA and celiac axis due to the dense plaque. Densely calcified plaque continues into the iliac arteries. There is a small amount of free fluid in the abdomen. Fluid is predominantly adjacent to the liver. GI tract: No GI tract obstruction. No small bowel obstruction. Appendix is normal. Diffuse moderate constipation and inspissation of fecal material. There are diverticula in the descending and sigmoid colon. Increasing burden of throughout the sigmoid colon but no obstruction. Abdominal wall: Negative. No hernia. Pelvis: There is a large mixed attenuation mass within the pelvis. Mass extends over a length of 13.4 cm, transversely 11.4 cm in anterior posterior 13.0 cm. There is mixed attenuation with fluid centrally. Coarse calcifications are also present within this mass. Mass is compressing the urinary bladder. No free fluid or adenopathy within the pelvis. Neither ovary is identified as a separate structure. Osseous structures: 50% anterior compression fracture of T11. CT/CT abdomen pelvis wo con [id number] IMPRESSION: 1. Diffuse moderate constipation with inspissated fecal material. 2. Large heterogeneous mass with calcification in the mid pelvis compressing t he urinary bladder. Mass measures 11.4 x 13.0 x 13.4 cm. This is probably a fib roid uterus. Due to the changes in attenuation recommend follow-up transabdomin al and transvaginal ultrasound evaluation. Neither ovary is identified as a sep arate structure on CT. Endometrial or ovarian neoplasm needs to be excluded. 3. Contracted gallbladder. Suspect there is a mixed density stone within the g allbladder containing air. Gallbladder can be further evaluated by ultrasound. 4. Low normal size RIGHT kidney. Mild atrophy LEFT kidney. 5. Heavily calcified abdominal aorta, iliac and mesenteric arteries. Component of stenosis involving the mesenteric arteries is likely. No ischemic changes i n the GI tract identified on today's exam. 6. Small amount of ascites adjacent to the liver. Insufficient for paracentesi s. 7. T11 compression fracture, 50%.
[2025-05-12] MEDS: iohexol 350 mg/mL 500 mL Btl (per mL) PO (12:31)
== END 2025-05-12 11:18 | disposition home or self-care (01) ==
LOC: RAD 11:17
PROVIDERS: PCP Nurse Practitioner; Visit Provider Nurse Practitioner
DX: K59.01 Slow transit constipation (principal); E03.8 Other specified hypothyroidism; K44.9 Diaphragmatic hernia without obstruction or gangrene; K82.9 Disease of gallbladder, unspecified; N28.89 Other specified disorders of kidney and ureter; N26.1 Atrophy of kidney (terminal); R19.00 Intra-abdominal and pelvic swelling, mass and lump, unspecified site
CPT/HCPCS: 74176; 80053; 81000; 83735; 84443